=== PATIENT | female | born 1950 | race Caucasian/White ===

== ENCOUNTER 2020-08-11 16:57 | Observation (INO) | payer MEDICARE, MEDICAID ==
--- NOTE | 2020-08-11 17:34 | EDM.PDOCBH ---
ED HPI GENERAL MEDICAL PROBLEM - General Chief Complaint: Behavioral/Psych Stated Complaint: hallucination Time Seen by Provider: 08/11/20 17:22 Source of Information: Reports: Patient, Other (Mango watermelon inspector boyfriend. ) History Limitations: Reports: No Limitations - History of Present Illness INITIAL COMMENTS - FREE TEXT/NARRATIVE: This patient is a 69 year old female that presents to the ER. Patient reports that her family wanted her to be seen because they think she has a UTI. The patient reports that she campos also been seeing 5 guys around her house that [place], but now are her neighbors. She reports that she s scared of them. She denies suicidal or homicidal ideations. Mango who is her watermelon inspector boyfriend reports the patient for several weeks has been seeing people that do not exist outside the house. He also reports that she said there was a truck that pulled up in their yard that did not exist. The patient does report that these things do exist. Patient reports that has no complaints herself. She reports she was told to come to the ER to be checked out by her family and that her boyfriend drove her here. Patient reports having children, but no in contact. She reports her person to talk to is her boyfriend. The patient denies campos, dizziness, n, v, d, f, chest pain, shortness of breath, congestion, drainage, cough, rash, abd pain, urinary/bowel changes. The patient is fully alert and oriented. Onset: Other ("weeks") Duration: Week(s): ("weeks") Severity: Mild Improves with: Reports: None Worsens with: Reports: None Associated Symptoms: Denies: Confusion, Chest Pain, Cough, cough w sputum, Diaphoresis, Fever/Chills, Headaches, Loss of Appetite, Malaise, Nausea/Vomiting, Rash, Seizure, Shortness of Breath, Syncope, Weakness - Related Data Allergies Allergy/AdvReac Type Severity Reaction Status Date / Time No Known Allergies Allergy Verified 12/07/13 13:25 Home Meds: Home Meds DULoxetine [Cymbalta] 60 mg PO DAILY 12/07/13 [History] Dextroamphetamine/Amphetamine [Amphetamine Salts] 30 mg PO 0800,1500 12/07/13 [History] Ibuprofen 800 mg PO BID PRN 12/07/13 [History] Levothyroxine [Synthroid] 75 mcg PO DAILY 12/07/13 [History] Lisinopril [Zestril] 20 mg PO 0800,1500 12/07/13 [History] Multivitamin [Multi-Vitamin Daily] 1 each PO DAILY 12/07/13 [History] Oxybutynin 10 mg PO 0800,1500 12/07/13 [History] amLODIPine [Norvasc] 10 mg PO DAILY #30 tablet 12/10/13 [Rx] Fesoterodine Fumarate [Toviaz] 4 mg PO ASDIRECTED 08/11/20 [History] Metoprolol Tartrate [Lopressor] 25 mg PO 0800,1500 08/11/20 [History] Past Medical History Cardiovascular History: Reports: Hypertension Psychiatric History: Reports: ADHD, Depression, Hallucinations Endocrine/Metabolic History: Reports: Hypothyroidism - Past Surgical History GI Surgical History: Reports: Cholecystectomy Social & Family History - Tobacco Use Tobacco Use Status *Q: Former Tobacco User Used Tobacco, but Quit: Yes Month/Year Tobacco Last Used: 9 mos - Caffeine Use Caffeine Use: Reports: None - Recreational Drug Use Recreational Drug Use: No ED ROS GENERAL - Review of Systems Review Of Systems: See Below Constitutional: Reports: No Symptoms HEENT: Reports: No Symptoms. Denies: Dental Pain, Ear Discharge, Ear Pain, Eye Discharge, Eye Pain, Nosebleed, Rhinitis, Sinus Problem, Throat Pain, Throat Swelling, Vertigo, Vision Change Respiratory: Reports: No Symptoms. Denies: Shortness of Breath, Wheezing, Pleuritic Chest Pain, Cough, Sputum, Hemoptysis Cardiovascular: Reports: No Symptoms. Denies: Chest Pain, Dyspnea on Exertion, Edema, Lightheadedness, Palpitations, Syncope Endocrine: Reports: No Symptoms GI/Abdominal: Reports: No Symptoms. Denies: Abdominal Pain, Diarrhea, Decreased Appetite, Nausea, Vomiting : Reports: No Symptoms. Denies: Discharge, Dysuria, Flank Pain, Frequency, Hematuria, Incontinence, Pain, Urgency, Urinary Retention Musculoskeletal: Reports: No Symptoms Skin: Reports: No Symptoms Neurological: Reports: No Symptoms. Denies: Confusion, Dizziness, Headache, Numbness, Paresthesia, Pre-Existing Deficit, Seizure, Syncope, Tingling, Tremors, Trouble Speaking, Difficulty Walking, Weakness, Change in Speech, Gait Disturbance Psychiatric: Reports: Anxiety, Hallucinations. Denies: Agitation, Confusion, Homicidal Ideation, Suicidal Ideation Hematologic/Lymphatic: Reports: No Symptoms Immunologic: Reports: No Symptoms ED EXAM, BEHAVIORAL HEALTH - Physical Exam Exam: See Below Exam Limited By: No Limitations General Appearance: Alert, WD/WN, No Apparent Distress Eye Exam: Bilateral Eye: EOMI, Normal Inspection, PERRL Ears: Normal External Exam, Normal Canal, Hearing Grossly Normal, Normal TMs Nose: Normal Inspection, Normal Mucosa, No Blood Throat/Mouth: Normal Inspection, Normal Lips, Normal Teeth, Normal Gums, Normal Oropharynx, Normal Voice, No Airway Compromise Head: Atraumatic, Normocephalic Neck: Normal Inspection, Supple, Non-Tender, Full Range of Motion Respiratory/Chest: No Respiratory Distress, Lungs Clear, Normal Breath Sounds, No Accessory Muscle Use, Chest Non-Tender Cardiovascular: Normal Peripheral Pulses, Regular Rate, Rhythm, No Edema, No Gallop, No JVD, No Murmur, No Rub GI/Abdominal: Normal Bowel Sounds, Soft, Non-Tender, No Organomegaly, No Distention, No Abnormal Bruit, No Mass, Pelvis Stable (Female) Exam: Deferred Rectal (Female) Exam: Deferred Back Exam: Normal Inspection, Full Range of Motion. No: CVA Tenderness (L), CVA Tenderness (R), Paraspinal Tenderness, Vertebral Tenderness Extremities: Normal Inspection, Normal Range of Motion, Non-Tender, No Pedal Edema, Normal Capillary Refill Neurological: Alert, Normal Mood/Affect, CN II-XII Intact, Normal Cognition, Normal Gait, No Motor/Sensory Deficits, Oriented x 3, Other (GCS 15, Stroke Score 0. I do not witness patient having any hallucinations in the ER. ) Psychiatric: Alert, Normal Affect, Normal Cognition, Normal Mood, Oriented. No: Incoherent, Restless, Tearful, Agitated, Disoriented, Inattentive, Non- Communicative, Poor Eye Contact, Uncooperative, Withdrawn, Flight of Ideas, Homicidal Thoughts, Phobic, Hoahaoism Delusions, Suicidal Plan, Suicidal Thoughts, Auditory Hallucinations, Visual Hallucinations (Not seen by me in the ER), Pressured Speech, Threatening Behavior Skin Exam: Warm, Dry, Intact, Normal color, No rash COURSE, BEHAVIORAL HEALTH COMP - Course Vital Signs: Last Vital Signs Temp 97.2 F 08/11/20 19:38 Pulse 64 08/11/20 20:00 Resp 18 08/11/20 19:38 BP 134/68 08/11/20 19:38 Pulse Ox 94 L 08/11/20 20:00 Orders, Labs, Meds: Active Orders 24 hr Category Date Time Status Patient Status [ADT] Routine ADT 08/11/20 19:38 Active Ambulate [RC] .PRN Care 08/11/20 19:38 Active Antiembolic Devices [RC] 1000,2200 Care 08/11/20 19:38 Active Notify Provider Vital Signs [RC] .PRN Care 08/11/20 19:38 Active Oxygen Therapy [RC] .PRN Care 08/11/20 19:38 Active Vital Signs [RC] 0000,0400,0800,1200,1600,2000 Care 08/11/20 19:38 Active Regular Diet [DIET] Diet 08/11/20 Breakfast Active Head wo Cont [CT] Stat Exams 08/11/20 18:01 Taken BASIC METABOLIC PANEL,BMP [CHEM] DAILY Lab 08/12/20 05:00 Ordered BASIC METABOLIC PANEL,BMP [CHEM] DAILY Lab 08/13/20 05:00 Ordered CBC WITH AUTO DIFF [HEME] DAILY Lab 08/12/20 05:00 Ordered CBC WITH AUTO DIFF [HEME] DAILY Lab 08/13/20 05:00 Ordered CULTURE URINE [RM] Stat Lab 08/11/20 19:12 Received Acetaminophen [TylenoL] Med 08/11/20 19:38 Active 650 mg PO Q4H PRN Acetaminophen/HYDROcodone [[place] 325-5 MG] Med 08/11/20 19:38 Active 1 tab PO Q4H PRN Enoxaparin [Lovenox] Med 08/11/20 19:38 Ordered 30 mg SUBCUT Q24H Morphine Med 08/11/20 19:38 Active 2 mg IVPUSH Q2H PRN Ondansetron [Zofran] Med 08/11/20 19:38 Active 4 mg IV Q6H PRN Sodium Chloride 0.9% [Normal Saline] 1,000 ml Med 08/11/20 19:38 Active IV ASDIRECTED Antiembolic Hose [OM.PC] Per Unit Routine Oth 08/11/20 19:38 Ordered Resuscitation Status Routine Resus Stat 08/11/20 19:22 Ordered Medication Orders Acetaminophen (Acetaminophen 325 Mg Tab) 650 mg PO Q4H PRN PRN Reason: Pain (Mild 1-3)/fever Hydrocodone Bitart/Acetaminophen (Acetaminophen/Hydrocodone 325-5 Mg Tab) 1 tab PO Q4H PRN PRN Reason: Pain (moderate 4-6) Enoxaparin Sodium (Enoxaparin 30 Mg/0.3 Ml Syringe) 30 mg SUBCUT Q24H [facility] Sodium Chloride (Normal Saline) 1,000 mls @ 100 mls/hr IV ASDIRECTED RETA Stop: 08/12/20 05:37 Levofloxacin/Dextrose 500 mg/ (Premix) 100 mls @ 100 mls/hr IV ONETIME ONE Stop: 08/11/20 20:37 Levofloxacin/Dextrose 250 mg/ (Premix) 50 mls @ 50 mls/hr IV Q24H RETA Morphine Sulfate (Morphine 2 Mg/Ml Syringe) 2 mg IVPUSH Q2H PRN PRN Reason: Pain (severe 7-10) Non-Formulary Medication (Amlodipine [Norvasc]) 10 mg PO DAILY [facility] Non-Formulary Medication (Dextroamphetamine/Amphetamine [Amphetamine Salts]) 30 mg PO 0800,1500 [facility] Non-Formulary Medication (Duloxetine [Cymbalta]) 60 mg PO DAILY [facility] Non-Formulary Medication (Fesoterodine Fumarate [Toviaz]) 4 mg PO ASDIRECTED [facility] Non-Formulary Medication (Levothyroxine [Synthroid]) 75 mcg PO DAILY [facility] Non-Formulary Medication (Lisinopril [Zestril]) 20 mg PO 0800,1500 [facility] Non-Formulary Medication (Metoprolol Tartrate [Lopressor]) 25 mg PO 0800,1500 [facility] Non-Formulary Medication (Multivitamin [Multi-Vitamin Daily]) 1 each PO DAILY [facility] Non-Formulary Medication (Oxybutynin [Oxybutynin]) 10 mg PO 0800,1500 [facility] Ondansetron HCl (Ondansetron 4 Mg/2 Ml Sdv) 4 mg IV Q6H PRN PRN Reason: Nausea/Vomiting Laboratory Tests 08/11/20 08/11/20 08/11/20 Range/Units 17:27 17:27 17:51 WBC 7.7 (5.0-10.0) 10^3/uL RBC 4.91 (4.00-5.50) 10^6/uL Hgb 13.4 (12.0-16.0) g/dL Hct 42.4 (37.0-47.0) % MCV 86.4 (82.0-94.0) fL MCH 27.3 (27.0-32.0) pg MCHC 31.6 L (33.0-38.0) g/dL RDW Coeff of Marck 15.0 (11.0-15.0) % Plt Count 261 (150-400) 10^3/uL Neut % (Auto) 66.0 (35-85) % Lymph % (Auto) 23.6 (10-55) % Cedar % (Auto) 7.8 (0-16) % Eos % (Auto) 2.2 (0-5) % Baso % (Auto) 0.4 (0-3) % Neut # (Auto) 5.07 (1.80-7.00) 10^3/uL Lymph # (Auto) 1.81 (1.00-4.80) 10^3/uL Cedar # (Auto) 0.60 (0.00-0.80) 10^3/uL Eos # (Auto) 0.17 (0.00-0.45) 10^3/uL Baso # (Auto) 0.03 10^3/uL Sodium (136-145) mEq/L Potassium (3.5-5.0) mEq/L Chloride (98-106) mEq/L Carbon Dioxide (21-32) mmol/L BUN (7-18) mg/dL Creatinine (0.6-1.0) mg/dL Est Cr Clr Drug Dosing mL/min Estimated GFR (MDRD) (>=60) mL/min Glucose (75-99) mg/dL Calcium (8.4-10.1) mg/dL Total Bilirubin (0.0-1.0) mg/dL AST (15-37) U/L ALT (12-78) U/L Alkaline Phosphatase (46-116) U/L Total Protein (6.4-8.2) g/dL Albumin (3.4-5.0) g/dL Urine Color Dark yellow (YELLOW) Urine Appearance Turbid (CLEAR) Urine pH 5.5 (4.5-8.0) Ur Specific [place] >= 1.030 H (1.003-1.020) Urine Protein 30 H (NEGATIVE) mg/dL Urine Glucose (UA) Negative (NEGATIVE) mg/dL Urine Ketones Negative (NEGATIVE) mg/dL Urine Occult Blood Negative (NEGATIVE) Urine Nitrite Positive H (NEGATIVE) Urine Bilirubin Negative (NEGATIVE) Urine Urobilinogen 0.2 (0.2-1.0) EU/dL Ur Leukocyte Esterase Negative (NEGATIVE) Urine RBC 0-5 (0-5) /HPF Urine WBC 5-10 H (0-5) /HPF Ur Squamous Epith Cells Few H (NOT SEEN) /HPF Urine Bacteria Many H (NOT SEEN) /HPF Urinalysis Comment Urine Opiates Screen Negative (NEGATIVE) Ur Oxycodone Screen Negative (NEGATIVE) Urine Methadone Screen Negative (NEGATIVE) Ur Barbiturates Screen Negative (NEGATIVE) U Tricyclic Antidepress Negative (NEGATIVE) Ur Phencyclidine Scrn Negative (NEGATIVE) Ur Amphetamine Screen Positive H (NEGATIVE) U Methamphetamines Scrn Negative (NEGATIVE) Urine MDMA Screen Negative (NEGATIVE) U Benzodiazepines Scrn Negative (NEGATIVE) Urine Cocaine Screen Negative (NEGATIVE) U Marijuana (THC) Screen Negative (NEGATIVE) Ethyl Alcohol (0-3) mg/dL 08/11/20 Range/Units 17:51 WBC (5.0-10.0) 10^3/uL RBC (4.00-5.50) 10^6/uL Hgb (12.0-16.0) g/dL Hct (37.0-47.0) % MCV (82.0-94.0) fL MCH (27.0-32.0) pg MCHC (33.0-38.0) g/dL RDW Coeff of Marck (11.0-15.0) % Plt Count (150-400) 10^3/uL Neut % (Auto) (35-85) % Lymph % (Auto) (10-55) % Cedar % (Auto) (0-16) % Eos % (Auto) (0-5) % Baso % (Auto) (0-3) % Neut # (Auto) (1.80-7.00) 10^3/uL Lymph # (Auto) (1.00-4.80) 10^3/uL Cedar # (Auto) (0.00-0.80) 10^3/uL Eos # (Auto) (0.00-0.45) 10^3/uL Baso # (Auto) 10^3/uL Sodium 144 (136-145) mEq/L Potassium 4.1 D (3.5-5.0) mEq/L Chloride 103 (98-106) mEq/L Carbon Dioxide 30 (21-32) mmol/L BUN 17 (7-18) mg/dL Creatinine 1.7 H (0.6-1.0) mg/dL Est Cr Clr Drug Dosing 28.90 mL/min Estimated GFR (MDRD) 30 L (>=60) mL/min Glucose 131 H (75-99) mg/dL Calcium 9.3 (8.4-10.1) mg/dL Total Bilirubin 0.3 (0.0-1.0) mg/dL AST 28 (15-37) U/L ALT 29 (12-78) U/L Alkaline Phosphatase 168 H (46-116) U/L Total Protein 8.3 H (6.4-8.2) g/dL Albumin 3.6 (3.4-5.0) g/dL Urine Color (YELLOW) Urine Appearance (CLEAR) Urine pH (4.5-8.0) Ur Specific [place] (1.003-1.020) Urine Protein (NEGATIVE) mg/dL Urine Glucose (UA) (NEGATIVE) mg/dL Urine Ketones (NEGATIVE) mg/dL Urine Occult Blood (NEGATIVE) Urine Nitrite (NEGATIVE) Urine Bilirubin (NEGATIVE) Urine Urobilinogen (0.2-1.0) EU/dL Ur Leukocyte Esterase (NEGATIVE) Urine RBC (0-5) /HPF Urine WBC (0-5) /HPF Ur Squamous Epith Cells (NOT SEEN) /HPF Urine Bacteria (NOT SEEN) /HPF Urinalysis Comment Urine Opiates Screen (NEGATIVE) Ur Oxycodone Screen (NEGATIVE) Urine Methadone Screen (NEGATIVE) Ur Barbiturates Screen (NEGATIVE) U Tricyclic Antidepress (NEGATIVE) Ur Phencyclidine Scrn (NEGATIVE) Ur Amphetamine Screen (NEGATIVE) U Methamphetamines Scrn (NEGATIVE) Urine MDMA Screen (NEGATIVE) U Benzodiazepines Scrn (NEGATIVE) Urine Cocaine Screen (NEGATIVE) U Marijuana (THC) Screen (NEGATIVE) Ethyl Alcohol < 3 (0-3) mg/dL Medications Generic Name Dose Route Start Last Admin Trade Name Freq PRN Reason Stop Dose Admin Acetaminophen 650 mg 08/11/20 19:38 Acetaminophen 325 Mg Tab PO Q4H PRN Pain (Mild 1-3)/fever Hydrocodone Bitart/Acetaminophen 1 tab 08/11/20 19:38 Acetaminophen/Hydrocodone 325-5 Mg Tab PO Q4H PRN Pain (moderate 4-6) Enoxaparin Sodium 30 mg 08/11/20 20:00 Enoxaparin 30 Mg/0.3 Ml Syringe SUBCUT Q24H [facility] Sodium Chloride 1,000 mls @ 100 mls/hr 08/11/20 19:38 Normal Saline IV 08/12/20 05:37 ASDIRECTED RETA Levofloxacin/Dextrose 500 mg/ 100 mls @ 100 mls/hr 08/11/20 19:38 Premix IV 08/11/20 20:37 ONETIME ONE Levofloxacin/Dextrose 250 mg/ 50 mls @ 50 mls/hr 08/12/20 20:00 Premix IV Q24H RETA Morphine Sulfate 2 mg 08/11/20 19:38 Morphine 2 Mg/Ml Syringe IVPUSH Q2H PRN Pain (severe 7-10) Non-Formulary Medication 10 mg 08/12/20 08:00 Amlodipine [Norvasc] PO DAILY [facility] Non-Formulary Medication 30 mg 08/12/20 08:00 Dextroamphetamine/Amphetamine [Amphetamine Salts] PO 0800,1500 [facility] Non-Formulary Medication 60 mg 08/12/20 08:00 Duloxetine [Cymbalta] PO DAILY [facility] Non-Formulary Medication 4 mg 08/11/20 19:38 Fesoterodine Fumarate [Toviaz] PO ASDIRECTED [facility] Non-Formulary Medication 75 mcg 08/12/20 08:00 Levothyroxine [Synthroid] PO DAILY [facility] Non-Formulary Medication 20 mg 08/12/20 08:00 Lisinopril [Zestril] PO 0800,1500 [facility] Non-Formulary Medication 25 mg 08/12/20 08:00 Metoprolol Tartrate [Lopressor] PO 0800,1500 [facility] Non-Formulary Medication 1 each 08/12/20 08:00 Multivitamin [Multi-Vitamin Daily] PO DAILY [facility] Non-Formulary Medication 10 mg 08/12/20 08:00 Oxybutynin [Oxybutynin] PO 0800,1500 [facility] Ondansetron HCl 4 mg 08/11/20 19:38 Ondansetron 4 Mg/2 Ml Sdv IV Q6H PRN Nausea/Vomiting Discontinued Medications Generic Name Dose Route Start Last Admin Trade Name Freq PRN Reason Stop Dose Admin Sodium Chloride 1,000 mls @ 1,000 mls/hr 08/11/20 18:39 Normal Saline IV 08/11/20 19:38 .BOLUS ONE Re-Assessment/Re-Exam: 08/11/[address]: No acute findings 08/11/20 1900 Patient CR is elevated at 1.7. Patient had urinary retention in the ER, had to cath for UA. UTI with Nitrate positive urine. Will culture. Will admit for renal insufficiency and UTI. Initially, her oxygen in the ER was 94%, does fluctuate between 90-94% on RA. Once patient arrived to the floor during admission her oxygen is 88%. I ordered a CXR and D-Dimer. She denies shortness of breath, cough, chest pain. She reports that when she had her back surgery in [place] in November that they had problems keeping her oxygen up while she was there for several days per patient. She reports everything was normal and they just put her on oxygen. Departure - Departure Time of Disposition: 18:52 Disposition: Refer to Observation Condition: Fair Clinical Impression: Renal insufficiency UTI (urinary tract infection) Qualifiers: Urinary tract infection type: acute cystitis Hematuria presence: without hematuria Qualified Code(s): N30.00 - Acute cystitis without hematuria - Discharge Information *PRESCRIPTION DRUG MONITORING PROGRAM REVIEWED*: Not Applicable *COPY OF PRESCRIPTION DRUG MONITORING REPORT IN PATIENT LACI: Not Applicable Sepsis Event Note (ED) - Evaluation Sepsis Screening Result: No Definite Risk - Focused Exam Vital Signs: Vital Signs Temp Pulse Resp BP Pulse Ox 08/11/20 17:00 97.7 F 80 18 120/65 94 L - My Orders Last 24 Hours: My Active Orders 08/11/20 Breakfast Regular Diet [DIET] 08/11/20 18:01 Head wo Cont [CT] Stat 08/11/20 19:12 CULTURE URINE [RM] Stat 08/11/20 19:22 Resuscitation Status Routine 08/11/20 19:38 Acetaminophen [TylenoL] 650 mg PO Q4H PRN Acetaminophen/HYDROcodone [[place] 325-5 MG] 1 tab PO Q4H PRN Enoxaparin [Lovenox] 30 mg SUBCUT Q24H Morphine 2 mg IVPUSH Q2H PRN Ondansetron [Zofran] 4 mg IV Q6H PRN Sodium Chloride 0.9% [Normal Saline] 1,000 ml IV ASDIRECTED 08/11/20 19:38 Patient Status [ADT] Routine Ambulate [RC] .PRN Antiembolic Devices [RC] 1000,2200 Notify Provider Vital Signs [RC] .PRN Oxygen Therapy [RC] .PRN Vital Signs [RC] 0000,0400,0800,1200,1600,2000 Antiembolic Hose [OM.PC] Per Unit Routine 08/12/20 05:00 BASIC METABOLIC PANEL,BMP [CHEM] DAILY CBC WITH AUTO DIFF [HEME] DAILY 08/13/20 05:00 BASIC METABOLIC PANEL,BMP [CHEM] DAILY CBC WITH AUTO DIFF [HEME] DAILY - Assessment/Plan Last 24 Hours: My Active Orders 08/11/20 Breakfast Regular Diet [DIET] 08/11/20 18:01 Head wo Cont [CT] Stat 08/11/20 19:12 CULTURE URINE [RM] Stat 08/11/20 19:22 Resuscitation Status Routine 08/11/20 19:38 Acetaminophen [TylenoL] 650 mg PO Q4H PRN Acetaminophen/HYDROcodone [[place] 325-5 MG] 1 tab PO Q4H PRN Enoxaparin [Lovenox] 30 mg SUBCUT Q24H Morphine 2 mg IVPUSH Q2H PRN Ondansetron [Zofran] 4 mg IV Q6H PRN Sodium Chloride 0.9% [Normal Saline] 1,000 ml IV ASDIRECTED 08/11/20 19:38 Patient Status [ADT] Routine Ambulate [RC] .PRN Antiembolic Devices [RC] 1000,2200 Notify Provider Vital Signs [RC] .PRN Oxygen Therapy [RC] .PRN Vital Signs [RC] 0000,0400,0800,1200,1600,2000 Antiembolic Hose [OM.PC] Per Unit Routine 08/12/20 05:00 BASIC METABOLIC PANEL,BMP [CHEM] DAILY CBC WITH AUTO DIFF [HEME] DAILY 08/13/20 05:00 BASIC METABOLIC PANEL,BMP [CHEM] DAILY CBC WITH AUTO DIFF [HEME] DAILY Plan: PLEASE SEE RN NOTE FOR PFSH PLEASE USE ER H&P ADMIT H&P.
[2020-08-11 18:06] LABS: CHLORIDE,CL 103 mEq/L (98-106); SODIUM,NA 144 mEq/L (136-145)
[2020-08-11] MEDS ORDERED: Sodium Chloride 0.9% 1,000 ML IV ONE (18:39)
[2020-08-11] MEDS ORDERED: Sodium Chloride 0.9% 1,000 ML IV SCH (19:38)
[2020-08-11] MEDS ORDERED: Acetaminophen 325 MG Tab PO PRN (19:38)
[2020-08-11] MEDS ORDERED: Acetaminophen/HYDROcodone 325-5 MG Tab PO PRN (19:38)
[2020-08-11] MEDS ORDERED: Ondansetron 4 MG/2 ML SDV IV PRN (19:38)
[2020-08-11] MEDS ORDERED: Morphine 2 MG/ML SYRINGE IVPUSH PRN (19:38)
[2020-08-11] MEDS ORDERED: Levofloxacin/Dextrose 5%-Water 500 MG in Premix Bag 1 BAG IV ONE (19:38)
[2020-08-11] MEDS: Enoxaparin 30 MG/0.3 ML Syringe SUBCUT SCH (20:29)
[2020-08-11] MEDS: Temazepam 15 MG Cap PO PRN (22:04)
[2020-08-12] MEDS ORDERED: Levothyroxine 50 MCG Tab PO SCH (07:00)
[2020-08-12] MEDS: Multivitamin Tab PO SCH (07:51)
[2020-08-12] MEDS ORDERED: OXYBUTYNIN 5 MG PO SCH (08:00)
[2020-08-12] MEDS: AMLODIPINE 10 MG PO SCH (08:25)
[2020-08-12] MEDS: AMPHETAMINE PO SCH ×2 (08:25→15:46)
[2020-08-12] MEDS: DEXTROAMPHETAMINE PO SCH ×2 (08:25→15:46)
[2020-08-12] MEDS ORDERED: Iopamidol 755 Mg/ML 100 ML Bottle IVPUSH ONE (11:29)
--- NOTE | 2020-08-12 13:59 | PCM.CONSBH ---
Hx. Present Illness - - General Date of Service: 08/12/20 Admit Problem/Dx: Admission Diagnosis/Problem Admission Diagnosis/Problem UTI, Urinary tract infectious disease Source of Information: Reports: Patient, RN, RN Notes Reviewed History Limitations: Reports: No Limitations - Related Data Allergies/Adverse Reactions: Allergies Allergy/AdvReac Type Severity Reaction Status Date / Time No Known Allergies Allergy Verified 12/07/13 13:25 Home Medications: Home Meds DULoxetine [Cymbalta] 60 mg PO DAILY 12/07/13 [History] Dextroamphetamine/Amphetamine [Amphetamine Salts] 30 mg PO 0800,1500 12/07/13 [History] Ibuprofen 800 mg PO BID PRN 12/07/13 [History] Levothyroxine [Synthroid] 75 mcg PO DAILY 12/07/13 [History] Lisinopril [Zestril] 20 mg PO 0800,1500 12/07/13 [History] Multivitamin [Multi-Vitamin Daily] 1 each PO DAILY 12/07/13 [History] amLODIPine [Norvasc] 10 mg PO DAILY #30 tablet 12/10/13 [Rx] Fesoterodine Fumarate [Toviaz] 4 mg PO ASDIRECTED 08/11/20 [History] Metoprolol Tartrate [Lopressor] 25 mg PO 0800,1500 08/11/20 [History] Past Medical Hx - Cardiovascular Hx: Reports: Hypertension Gastrointestinal Hx: Reports: Cholelithiasis Genitourinary Hx: Reports: Urinary Incontinence PEDIATRIC RADIOLOGIST Hx: Reports: Other (See Below) Psychiatric Hx: Reports: ADD, Depression Endocrine/Metabolic Hx: Reports: Thyroid Disease GI Surgical Hx: Reports: Cholecystectomy (Female) Surgical Hx: Reports: None Social & Family History - - Tobacco Use Used Tobacco, but Quit: Yes - Alcohol Use Alcohol Use History: No Review of Systems - - Review of Systems: Review Of Systems: Comprehensive ROS is negative, except as noted in HPI. Psychiatric: Reports: Depression, Anxiety, Hallucinations (Visual) Exam - - Exam Exam: See Below - Vital Signs Vital Signs: Last Vital Signs Temp 36.4 C 08/12/20 12:00 Pulse 74 08/12/20 12:00 Resp 18 08/12/20 12:00 BP 126/79 08/12/20 12:00 Pulse Ox 91 L 08/12/20 12:00 - Exam General: Alert, Oriented Neuro Exam - Mental Status: Alert, Oriented x3, Normal Mood/Affect Psychiatric: Alert, Normal Affect, Normal Mood - [place] I, II, III (1) Hallucinations, visual SNOMED Code(s): 24153830 ICD Code: R44.1 - VISUAL HALLUCINATIONS Status: Acute Current Visit: Yes - Plan FREE TEXT/NARRATIVE: General Appearance: elderly woman, wearing hospital gown, laying in hospital bed, wearing glasses, has oxygen on per nasal cannula Mood: euthymic Affect: congruent with mood Suicidal/Homicidal Ideations: denies SI or HI Behavior: cooperative, pleasant. psychomotor activity normal, eye contact well established Speech: clear, coherent, spontaneous Thought Process: goal directed, linear, logical Thought Content: denies hallucinations or delusions in hospital. talks about visual hallucinations that occurred at home Abnormal motor movements: normal Orientation: person, place, time Attention Span and Concentration: intact Judgment/Insight: appears developmentally appropriate Undersign asked to consult on patient regarding hallucinations. Patient into ER with significant other yesterday because she was reporting visual hallucinations. She was admitted to [facility] floor for UTI and has received one round of IV antibiotics. Patient states over the last month she has been seeing 3-5 guys who are in a band move onto her land. She states these men planted bushes with electrons and the electrons shoot out and killed over 50 cats. Patient also talks about seeing a toy bear on roller skates that could talk in her yard and one of the 3-5 men riding a horse around the yard. She reports being scared to be home alone because of these people in her yard. Patient states she is the only one who sees these men and that her significant other Mango does not see them. States "no one believes me." Patient denies seeing these men in the hospital. She denies auditory hallucinations, SI, or HI. Patient reports a history of depression, anxiety and ADHD. She currently takes duloxetine and adderall. Patient states her depression and anxiety have become worse over the last month due to the visual hallucinations and no one believing her. Patient states she and her significant other Mango have been together for 11 years. She reports having five children. No medication changes at this time as patient has only received one dose of antibiotics. Hallucinations should improve with treatment of UTI. If hallucinations do not resolve can reach out to undersign. - Orders Orders Last 24hrs: Active Orders 24 hr Category Date Time Status Patient Status [ADT] Routine ADT 08/11/20 19:38 Active Ambulate [RC] .PRN Care 08/11/20 19:38 Active Antiembolic Devices [RC] 1000,2200 Care 08/11/20 19:38 Active Notify Provider Vital Signs [RC] .PRN Care 08/11/20 19:38 Active Oxygen Therapy [RC] 2355 Care 08/11/20 19:38 Active Urinary Catheter Insertion [Insert Urinary Catheter] [ Care 08/11/20 19:49 Ordered OM.PC] Stat Vital Signs [RC] 0000,0400,0800,1200,1600,2000 Care 08/11/20 19:38 Active Consult to Psychiatric Intake Coord [Behavioral Health Cons 08/12/20 09:43 Active Evaluation] [CONS] Routine CTA Chest W WO Contrast [Ang Chest] [CT] Routine Exams 08/12/20 09:43 Taken CXR [Chest 2V] [CR] Stat Exams 08/12/20 06:00 Taken Head wo Cont [CT] Stat Exams 08/11/20 18:01 Taken BASIC METABOLIC PANEL,BMP [CHEM] DAILY Lab 08/13/20 05:00 Ordered CBC WITH AUTO DIFF [HEME] DAILY Lab 08/13/20 05:00 Ordered CULTURE URINE [RM] Stat Lab 08/11/20 19:12 Results Acetaminophen [TylenoL] Med 08/11/20 19:38 Active 650 mg PO Q4H PRN Acetaminophen/HYDROcodone [[place] 325-5 MG] Med 08/11/20 19:38 Active 1 tab PO Q4H PRN DULoxetine [Cymbalta] Med 08/12/20 08:00 Active 60 mg PO DAILY Dextroamphetamine/Amphetamine [Amphetamine Salts] Med 08/12/20 08:00 Active 30 mg PO 0800,1500 Enoxaparin [Lovenox] Med 08/11/20 20:00 Active 30 mg SUBCUT Q24H Fesoterodine Fumarate [Toviaz] Med 08/11/20 19:38 Active 4 mg PO ASDIRECTED Levofloxacin/Dextrose 5%-Water [Levaquin in D5W 250 MG/ Med 08/12/20 20:00 Active 50 ML] 250 mg Premix Bag 1 bag IV Q24H Levothyroxine [Synthroid] Med 08/12/20 07:00 Active 75 mcg PO ACBREAKFAST Lisinopril [Zestril] Med 08/12/20 08:00 Active 20 mg PO 0800,1500 Metoprolol Tartrate [Lopressor] Med 08/12/20 08:00 Active 25 mg PO 0800,1500 Morphine Med 08/11/20 19:38 Active 2 mg IVPUSH Q2H PRN Multivitamins [Tab-A-Leonila] Med 08/12/20 08:00 Active 1 tab PO DAILY Ondansetron [Zofran] Med 08/11/20 19:38 Active 4 mg IV Q6H PRN Temazepam [Restoril] Med 08/11/20 21:16 Active 15 mg PO BEDTIME PRN amLODIPine [Norvasc] Med 08/12/20 08:00 Active 10 mg PO DAILY Antiembolic Hose [OM.PC] Per Unit Routine Oth 08/11/20 19:38 Ordered Resuscitation Status Routine Resus Stat 08/11/20 19:22 Ordered Medication Orders Acetaminophen (Acetaminophen 325 Mg Tab) 650 mg PO Q4H PRN PRN Reason: Pain (Mild 1-3)/fever Hydrocodone Bitart/Acetaminophen (Acetaminophen/Hydrocodone 325-5 Mg Tab) 1 tab PO Q4H PRN PRN Reason: Pain (moderate 4-6) Enoxaparin Sodium (Enoxaparin 30 Mg/0.3 Ml Syringe) 30 mg SUBCUT Q24H [facility] Last Admin: 08/11/20 20:29 Dose: 30 mg Documented by: CR Levofloxacin/Dextrose 250 mg/ (Premix) 50 mls @ 50 mls/hr IV Q24H [facility] Levothyroxine Sodium (Levothyroxine 50 Mcg Tab) 75 mcg PO ACBREAKFAST [facility] Last Admin: 08/12/20 07:47 Dose: 75 mcg Documented by: AYO Morphine Sulfate (Morphine 2 Mg/Ml Syringe) 2 mg IVPUSH Q2H PRN PRN Reason: Pain (severe 7-10) Multivitamins/Minerals/Vitamin C (Multivitamin Tab) 1 tab PO DAILY [facility] Last Admin: 08/12/20 07:51 Dose: 1 tab Documented by: AYO (Amlodipine [Norvasc ] 10 Mg Tablet) Own Med 10 mg PO DAILY [facility] Last Admin: 08/12/20 08:25 Dose: 10 mg Documented by: JAMAL (Dextroamphetamine/Amphetamine [ Amphetamine Salts] 30 Mg Own Med 30 mg PO 0800,1500 [facility] Last Admin: 08/12/20 08:25 Dose: 30 mg Documented by: JAMAL (Duloxetine [ Cymbalta] 60 Mg Cap) Own Med 60 mg PO DAILY [facility] Last Admin: 08/12/20 08:25 Dose: 60 mg Documented by: JAMAL [Toviaz] 8 Mg Tab.Er (.24h) Own Med) 4 mg PO ASDIRECTED [facility] (Lisinopril [Zestril ] 20 Mg Tablet) Own Med 20 mg PO 0800,1500 [facility] Last Admin: 08/12/20 08:25 Dose: 20 mg Documented by: JAMAL (Metoprolol Tartrate [Lopressor] 25 Mg Tablet)Own Med 25 mg PO 0800,1500 [facility] Last Admin: 08/12/20 08:25 Dose: 25 mg Documented by: JAMAL Ondansetron HCl (Ondansetron 4 Mg/2 Ml Sdv) 4 mg IV Q6H PRN PRN Reason: Nausea/Vomiting Temazepam (Temazepam 15 Mg Cap) 15 mg PO BEDTIME PRN PRN Reason: Insomnia Last Admin: 08/11/20 22:04 Dose: 15 mg Documented by: JOHNATHON TeleHealth - TeleHealth Patient Service Facility: [facility]: [facility] Informed Consent: Telemedicine Audio/Visual Informed Consent: The risks, benefits, and alternatives to the telehealth visit were explained to the patient and the patient consented to this modality of care. The telehealth visit was carried out via a secure, web-based conferencing system. This telemedicine service was a real-time, two-way interactive video and communication between the patient and the provider. All the parties involved were identified and approved by the patient prior to the visit. Any physical exam was assisted by the patient. Un less noted otherwise, the provider was located at their usual clinic location, and the patient was at their place of residence. Patient identity was confirmed by having the patient state their name and date of . All communications with the patient (verbal, audiovisual, and written) were documented in the patients medical record per documentation standards.
[2020-08-12] MEDS: Levofloxacin/Dextrose 5%-Water 250 MG in Premix Bag 1 BAG IV SCH (19:53)
[2020-08-12] MEDS: Enoxaparin 30 MG/0.3 ML Syringe SUBCUT SCH (19:53)
--- NOTE | 2020-08-12 23:25 | PCM.PN ---
- General Info Date of Service: 08/12/20 Admission Dx/Problem (Free Text): Admission Diagnosis/Problem Admission Diagnosis/Problem UTI, Urinary tract infectious disease Subjective Update: Omayra is a 69 year old female that presented to the ER yesterday. Patient's family was concerned she had a UTI. She admitted to family she has also been seeing 5 guys around her house that [place] to [place], but now are her neighbors. She reports that she is scared of them. She denies suicidal or homicidal ideations. Mango who is her intermediate accountant boyfriend reports the patient for several weeks has been seeing people that do not exist outside the house. He also reports that she said there was a truck that pulled up in their yard that did not exist. The patient does report that these things do exist. Patient reports that has no complaints herself. She reports she was told to come to the ER to be checked out by her family and that her boyfriend drove her here. Karthik hernandez reports having children, but no in contact. She reports her person to talk to is her boyfriend. The patient denies campos, dizziness, n, v, d, f, chest pain, shortness of breath, congestion, drainage, cough, rash, abd pain, urinary/bowel changes. The patient is fully alert and oriented on admit. 08/12/2020 Omayra states she is feeling better today. States she continues to see people which according to her boyfriend are not present. She has no complaints this morning. Patient has been afebrile. Denies any new onset of symptoms. - Review of Systems General: Reports: No Symptoms HEENT: Reports: No Symptoms Pulmonary: Reports: No Symptoms Cardiovascular: Reports: No Symptoms Gastrointestinal: Reports: No Symptoms Genitourinary: Reports: No Symptoms Musculoskeletal: Reports: No Symptoms Skin: Reports: No Symptoms Neurological: Reports: No Symptoms Psychiatric: Reports: No Symptoms - Patient Data Vitals - Most Recent: Last Vital Signs Temp 98.3 F 08/12/20 20:00 Pulse 77 08/12/20 21:45 Resp 20 08/12/20 20:00 BP 152/82 H 08/12/20 20:00 Pulse Ox 92 L 08/12/20 21:45 Weight - Most Recent: 174 lb 6.4 oz Lab Results Last 24 Hours: Laboratory Results - last 24 hr 08/12/20 08/12/20 08/12/20 Range/Units 07:14 07:14 09:59 WBC 4.5 L (5.0-10.0) 10^3/uL RBC 4.35 (4.00-5.50) 10^6/uL Hgb 11.9 L (12.0-16.0) g/dL Hct 38.3 (37.0-47.0) % MCV 88.0 (82.0-94.0) fL MCH 27.4 (27.0-32.0) pg MCHC 31.1 L (33.0-38.0) g/dL RDW Coeff of Marck 14.5 (11.0-15.0) % Plt Count 162 (150-400) 10^3/uL Neut % (Auto) 66.7 (35-85) % Lymph % (Auto) 22.1 (10-55) % [place] % (Auto) 7.7 (0-16) % Eos % (Auto) 3.3 (0-5) % Baso % (Auto) 0.2 (0-3) % Neut # (Auto) 3.02 (1.80-7.00) 10^3/uL Lymph # (Auto) 1.00 (1.00-4.80) 10^3/uL [place] # (Auto) 0.35 (0.00-0.80) 10^3/uL Eos # (Auto) 0.15 (0.00-0.45) 10^3/uL Baso # (Auto) 0.01 10^3/uL Sodium 143 (136-145) mEq/L Potassium 4.3 (3.5-5.0) mEq/L Chloride 106 (98-106) mEq/L Carbon Dioxide 31 (21-32) mmol/L BUN 11 (7-18) mg/dL Creatinine 1.2 H (0.6-1.0) mg/dL Est Cr Clr Drug Dosing 40.94 mL/min Estimated GFR (MDRD) 45 L (>=60) mL/min Glucose 112 H (75-99) mg/dL Calcium 8.5 (8.4-10.1) mg/dL SARS CoV-2 RNA Rapid MORENITA Negative (NEGATIVE) Kimo Results Last 24 Hours: Microbiology 08/11/20 19:12 Urine Culture - Preliminary Urine, Clean Catch Gram Negative Rods Med Orders - Current: Current Medications Acetaminophen (Acetaminophen 325 Mg Tab) 650 mg PO Q4H PRN PRN Reason: Pain (Mild 1-3)/fever Last Admin: 08/12/20 15:48 Dose: 650 mg Documented by: Hydrocodone Bitart/Acetaminophen (Acetaminophen/Hydrocodone 325-5 Mg Tab) 1 tab PO Q4H PRN PRN Reason: Pain (moderate 4-6) Enoxaparin Sodium (Enoxaparin 30 Mg/0.3 Ml Syringe) 30 mg SUBCUT Q24H [facility] [place] Last Admin: 08/12/20 19:53 Dose: 30 mg Documented by: Levofloxacin/Dextrose 250 mg/ (Premix) 50 mls @ 50 mls/hr IV Q24H [facility] [place] Last Admin: 08/12/20 19:53 Dose: 50 mls/hr Documented by: Levothyroxine Sodium (Levothyroxine 50 Mcg Tab) 75 mcg PO ACBREAKFAST [facility] [place] Last Admin: 08/12/20 07:47 Dose: 75 mcg Documented by: Morphine Sulfate (Morphine 2 Mg/Ml Syringe) 2 mg IVPUSH Q2H PRN PRN Reason: Pain (severe 7-10) Multivitamins/Minerals/Vitamin C (Multivitamin Tab) 1 tab PO DAILY [facility] [place] Last Admin: 08/12/20 07:51 Dose: 1 tab Documented by: (Amlodipine [Norvasc ] 10 Mg Tablet) Own Med 10 mg PO DAILY [facility] [place] Last Admin: 08/12/20 08:25 Dose: 10 mg Documented by: (Dextroamphetamine/Amphetamine [ Amphetamine Salts] 30 Mg Own Med 30 mg PO 0800,1500 [facility] [place] Last Admin: 08/12/20 15:46 Dose: 30 mg Documented by: (Duloxetine [ Cymbalta] 60 Mg Cap) Own Med 60 mg PO DAILY [facility] [place] Last Admin: 08/12/20 08:25 Dose: 60 mg Documented by: [Toviaz] 8 Mg Tab.Er (.24h) Own Med) 4 mg PO ASDIRECTED [facility] [place] (Lisinopril [Zestril ] 20 Mg Tablet) Own Med 20 mg PO 0800,1500 [facility] [place] Last Admin: 08/12/20 15:46 Dose: 20 mg Documented by: (Metoprolol Tartrate [Lopressor] 25 Mg Tablet)Own Med 25 mg PO 0800,1500 [facility] [place] Last Admin: 08/12/20 15:45 Dose: 25 mg Documented by: Ondansetron HCl (Ondansetron 4 Mg/2 Ml Sdv) 4 mg IV Q6H PRN PRN Reason: Nausea/Vomiting Temazepam (Temazepam 15 Mg Cap) 15 mg PO BEDTIME PRN PRN Reason: Insomnia Last Admin: 08/11/20 22:04 Dose: 15 mg Documented by: Discontinued Medications Sodium Chloride (Normal Saline) 1,000 mls @ 1,000 mls/hr IV .BOLUS ONE Stop: 08/11/20 19:38 Last Admin: 08/11/20 20:29 Dose: 1,000 mls/hr Documented by: Sodium Chloride (Normal Saline) 1,000 mls @ 100 mls/hr IV ASDIRECTED [facility] [place] Stop: 08/12/20 05:37 Last Admin: 08/11/20 22:05 Dose: 100 mls/hr Documented by: Levofloxacin/Dextrose 500 mg/ (Premix) 100 mls @ 100 mls/hr IV ONETIME ONE Stop: 08/11/20 20:37 Last Admin: 08/11/20 20:29 Dose: 100 mls/hr Documented by: Iopamidol (Iopamidol 755 Mg/Ml 100 Ml Bottle) 100 ml IVPUSH ONETIME ONE Stop: 08/12/20 11:30 Last Admin: 08/12/20 12:07 Dose: 100 ml Documented by: Non-Formulary Medication (Oxybutynin [Oxybutynin]) 10 mg PO 0800,1500 [facility] [place] - Exam General: Alert, Oriented, Cooperative, No Acute Distress Lungs: Clear to Auscultation, Normal Respiratory Effort Cardiovascular: Regular Rate, Regular Rhythm GI/Abdominal Exam: Normal Bowel Sounds, Soft, Non-Tender, No Organomegaly, No Distention Skin: Warm, Dry, Intact Neurological: No New Focal Deficit Psy/Mental Status: Alert, Normal Affect, Normal Mood, Hallucinations. No: Anxious, Depressed, Agitated, Suicidal Ideation, Homicidal Ideation - Patient Data Lab Results Last 24 hrs: Laboratory Results - last 24 hr 08/12/20 08/12/2021 Range/Units 07:14 07:14 09:59 WBC 4.5 L (5.0-10.0) 10^3/uL RBC 4.35 (4.00-5.50) 10^6/uL Hgb 11.9 L (12.0-16.0) g/dL Hct 38.3 (37.0-47.0) % MCV 88.0 (82.0-94.0) fL MCH 27.4 (27.0-32.0) pg MCHC 31.1 L (33.0-38.0) g/dL RDW Coeff of Marck 14.5 (11.0-15.0) % Plt Count 162 (150-400) 10^3/uL Neut % (Auto) 66.7 (35-85) % Lymph % (Auto) 22.1 (10-55) % [place] % (Auto) 7.7 (0-16) % Eos % (Auto) 3.3 (0-5) % Baso % (Auto) 0.2 (0-3) % Neut # (Auto) 3.02 (1.80-7.00) 10^3/uL Lymph # (Auto) 1.00 (1.00-4.80) 10^3/uL [place] # (Auto) 0.35 (0.00-0.80) 10^3/uL Eos # (Auto) 0.15 (0.00-0.45) 10^3/uL Baso # (Auto) 0.01 10^3/uL Sodium 143 (136-145) mEq/L Potassium 4.3 (3.5-5.0) mEq/L Chloride 106 (98-106) mEq/L Carbon Dioxide 31 (21-32) mmol/L BUN 11 (7-18) mg/dL Creatinine 1.2 H (0.6-1.0) mg/dL Est Cr Clr Drug Dosing 40.94 mL/min Estimated GFR (MDRD) 45 L (>=60) mL/min Glucose 112 H (75-99) mg/dL Calcium 8.5 (8.4-10.1) mg/dL SARS CoV-2 RNA Rapid MORENITA Negative (NEGATIVE) Result Diagrams: 08/12/20 07:14 08/12/20 07:14 Kimo Results Last 24 hrs: Microbiology 08/11/20 19:12 Urine Culture - Preliminary Urine, Clean Catch Gram Negative Rods Sepsis Event Note - Evaluation Sepsis Screening Result: No Definite Risk - Focused Exam Vital Signs: Vital Signs Temp Pulse Resp BP Pulse Ox 08/12/20 21:45 77 92 L 08/12/20 20:05 92 L 08/12/20 20:00 98.3 F 78 20 152/82 H 90 L 08/12/20 15:44 99.7 F 69 18 131/72 91 L 08/12/20 12:00 97.6 F 74 18 126/79 91 L - Problem List & Annotations (1) Hallucinations, visual SNOMED Code(s): 89332431 Code(s): R44.1 - VISUAL HALLUCINATIONS Status: Acute Current Visit: Yes (2) UTI (urinary tract infection) SNOMED Code(s): 50062567 Code(s): N39.0 - URINARY TRACT INFECTION, SITE NOT SPECIFIED Status: Acute Current Visit: Yes Qualifiers: Urinary tract infection type: acute cystitis Hematuria presence: without hematuria Qualified Code(s): N30.00 - Acute cystitis without hematuria - Problem List Review Problem List Initiated/Reviewed/Updated: Yes - My Orders Last 24 Hours: My Active Orders 08/12/20 09:43 Consult to Psychiatric Intake Coord [Behavioral Health Evaluation] [CONS] Routine CTA Chest W WO Contrast [Ang Chest] [CT] Routine 08/12/20 17:48 Saline Lock Insert [OM.PC] Routine - Plan Plan:: Chest x-ray report reviewed and concerns of left lower pneumonia. UTI was positive on admission and started on IV antibiotics. Urine culture pending. Patient did have an elevated d-dimer with history of chronic hypoxia since back surgery last year. Patient admits no known cause of hypoxia. CTA chest was not completed secondary to elevated creatinine. IV fluids given and labs repeated today. Creatinine has improved to 1.2 today and will proceed with CTA chest. Will continue IV antibiotics. Consult to psychiatry for further evaluation of hallucinations.
[2020-08-13] MEDS: LEVOTHYROXINE 75 MCG PO SCH (06:07)
[2020-08-13] MEDS: Multivitamin Tab PO SCH (07:28)
[2020-08-13] MEDS: DEXTROAMPHETAMINE PO SCH ×2 (07:29→15:23)
[2020-08-13] MEDS: AMPHETAMINE PO SCH ×2 (07:29→15:23)
[2020-08-13] MEDS: AMLODIPINE 10 MG PO SCH (07:32)
--- NOTE | 2020-08-13 12:36 | PCM.PN ---
- General Info Date of Service: 08/13/20 Admission Dx/Problem (Free Text): Admission Diagnosis/Problem Admission Diagnosis/Problem UTI, Urinary tract infectious disease Subjective Update: Omayra is a 69 year old female that presented to the ER yesterday. Patient's family was concerned she had a UTI. She admitted to family she has also been seeing 5 guys around her house that [place] live [place], but now are her neighbors. She reports that she is scared of them. She denies suicidal or homicidal ideations. Mango who is her manager terminal boyfriend reports the patient for several weeks has been seeing people that do not exist outside the house. He also reports that she said there was a truck that pulled up in their yard that did not exist. The patient does report that these things do exist. Patient reports that has no complaints herself. She reports she was told to come to the ER to be checked out by her family and that her boyfriend drove her here. Kimalexandra hernandez reports having children, but no in contact. She reports her person to talk to is her boyfriend. The patient denies campos, dizziness, n, v, d, f, chest pain, shortness of breath, congestion, drainage, cough, rash, abd pain, urinary/bowel changes. The patient is fully alert and oriented on admit. 08/12/2020 Omayra states she is feeling better today. States she continues to see people which according to her boyfriend are not present. She has no complaints this morning. Patient has been afebrile. Denies any new onset of symptoms. 08/13/2020 Omayra is in good spirits this morning. States she has gotten the best sleep she has in a long time. Continues to worry about visual hallucinations she is having at home. States she doesn't see anyone at the window in the hospital and states she feels safe. Admits she doesn't feel safe at home and is inquiring about skilled nursing placement. States her boyfriend doesn't see the people or vehicles that she has been seeing at home. She continues to be afebrile. Functional Status: Reports: Pain Controlled, Tolerating Diet, Ambulating, Urinating - Review of Systems General: Reports: Weakness HEENT: Reports: No Symptoms Pulmonary: Reports: No Symptoms Cardiovascular: Reports: No Symptoms Gastrointestinal: Reports: No Symptoms Genitourinary: Reports: No Symptoms Musculoskeletal: Reports: No Symptoms Neurological: Reports: No Symptoms Psychiatric: Reports: Hallucinations - Patient Data Vitals - Most Recent: Last Vital Signs Temp 97.9 F 08/13/20 11:19 Pulse 86 08/13/20 11:19 Resp 20 08/13/20 11:19 BP 118/65 08/13/20 11:19 Pulse Ox 92 L 08/13/20 11:19 Weight - Most Recent: 174 lb 6.4 oz Lab Results Last 24 Hours: Laboratory Results - last 24 hr 08/13/20 08/13/20 Range/Units 07:00 07:00 WBC 4.2 L (5.0-10.0) 10^3/uL RBC 4.06 (4.00-5.50) 10^6/uL Hgb 11.1 L (12.0-16.0) g/dL Hct 36.7 L (37.0-47.0) % MCV 90.4 (82.0-94.0) fL MCH 27.3 (27.0-32.0) pg MCHC 30.2 L (33.0-38.0) g/dL RDW Coeff of Marck 14.4 (11.0-15.0) % Plt Count 154 (150-400) 10^3/uL Neut % (Auto) 68.2 (35-85) % Lymph % (Auto) 19.0 (10-55) % [place] % (Auto) 9.7 (0-16) % Eos % (Auto) 2.6 (0-5) % Baso % (Auto) 0.5 (0-3) % Neut # (Auto) 2.88 (1.80-7.00) 10^3/uL Lymph # (Auto) 0.80 L (1.00-4.80) 10^3/uL [place] # (Auto) 0.41 (0.00-0.80) 10^3/uL Eos # (Auto) 0.11 (0.00-0.45) 10^3/uL Baso # (Auto) 0.02 10^3/uL Sodium 146 H (136-145) mEq/L Potassium 4.2 (3.5-5.0) mEq/L Chloride 107 H (98-106) mEq/L Carbon Dioxide 34 H (21-32) mmol/L BUN 11 (7-18) mg/dL Creatinine 1.2 H (0.6-1.0) mg/dL Est Cr Clr Drug Dosing 40.94 mL/min Estimated GFR (MDRD) 45 L (>=60) mL/min Glucose 127 H (75-99) mg/dL Calcium 8.9 (8.4-10.1) mg/dL Kimo Results Last 24 Hours: Microbiology 08/11/20 19:12 Urine Culture - Final Urine, Clean Catch Escherichia Coli Med Orders - Current: Current Medications Acetaminophen (Acetaminophen 325 Mg Tab) 650 mg PO Q4H PRN PRN Reason: Pain (Mild 1-3)/fever Last Admin: 08/12/20 15:48 Dose: 650 mg Documented by: Hydrocodone Bitart/Acetaminophen (Acetaminophen/Hydrocodone 325-5 Mg Tab) 1 tab PO Q4H PRN PRN Reason: Pain (moderate 4-6) Enoxaparin Sodium (Enoxaparin 30 Mg/0.3 Ml Syringe) 30 mg SUBCUT Q24H [facility] Last Admin: 08/12/20 19:53 Dose: 30 mg Documented by: Levofloxacin/Dextrose 250 mg/ (Premix) 50 mls @ 50 mls/hr IV Q24H [facility] Last Admin: 08/12/20 19:53 Dose: 50 mls/hr Documented by: Morphine Sulfate (Morphine 2 Mg/Ml Syringe) 2 mg IVPUSH Q2H PRN PRN Reason: Pain (severe 7-10) Multivitamins/Minerals/Vitamin C (Multivitamin Tab) 1 tab PO DAILY [facility] Last Admin: 08/13/20 07:28 Dose: 1 tab Documented by: (Amlodipine [Norvasc ] 10 Mg Tablet) Own Med 10 mg PO DAILY [facility] Last Admin: 08/13/20 07:32 Dose: 10 mg Documented by: (Dextroamphetamine/Amphetamine [ Amphetamine Salts] 30 Mg Own Med 30 mg PO 0800,1500 [facility] Last Admin: 08/13/20 07:29 Dose: 30 mg Documented by: (Duloxetine [ Cymbalta] 60 Mg Cap) Own Med 60 mg PO DAILY [facility] Last Admin: 08/13/20 07:28 Dose: 60 mg Documented by: (Lisinopril [Zestril ] 20 Mg Tablet) Own Med 20 mg PO 0800,1500 [facility] Last Admin: 08/13/20 07:29 Dose: 20 mg Documented by: (Metoprolol Tartrate [Lopressor] 25 Mg Tablet)Own Med 25 mg PO 0800,1500 [facility] Last Admin: 08/13/20 07:29 Dose: 25 mg Documented by: Nf Levothyroxine 75mcg *Patient Own Med* 1 each PO ACBREAKFAST [facility] Last Admin: 08/13/20 06:07 Dose: 1 each Documented by: Fesoterodine [Toviaz ] 4 Mg Tab.Er.24h *Own Med 0 mg PO DAILY [facility] Ondansetron HCl (Ondansetron 4 Mg/2 Ml Sdv) 4 mg IV Q6H PRN PRN Reason: Nausea/Vomiting Temazepam (Temazepam 15 Mg Cap) 15 mg PO BEDTIME PRN PRN Reason: Insomnia Last Admin: 08/11/20 22:04 Dose: 15 mg Documented by: Discontinued Medications Sodium Chloride (Normal Saline) 1,000 mls @ 1,000 mls/hr IV .BOLUS ONE Stop: 08/11/20 19:38 Last Admin: 08/11/20 20:29 Dose: 1,000 mls/hr Documented by: Sodium Chloride (Normal Saline) 1,000 mls @ 100 mls/hr IV ASDIRECTED [facility] Stop: 08/12/20 05:37 Last Admin: 08/11/20 22:05 Dose: 100 mls/hr Documented by: Levofloxacin/Dextrose 500 mg/ (Premix) 100 mls @ 100 mls/hr IV ONETIME ONE Stop: 08/11/20 20:37 Last Admin: 08/11/20 20:29 Dose: 100 mls/hr Documented by: Iopamidol (Iopamidol 755 Mg/Ml 100 Ml Bottle) 100 ml IVPUSH ONETIME ONE Stop: 08/12/20 11:30 Last Admin: 08/12/20 12:07 Dose: 100 ml Documented by: Levothyroxine Sodium (Levothyroxine 50 Mcg Tab) 75 mcg PO ACBREAKFAST [facility] Last Admin: 08/12/20 07:47 Dose: 75 mcg Documented by: [Toviaz] 8 Mg Tab.Er (.24h) Own Med) 4 mg PO ASDIRECTED [facility] Non-Formulary Medication (Oxybutynin [Oxybutynin]) 10 mg PO 0800,1500 [facility] - Exam General: Alert, Oriented, Cooperative, No Acute Distress Lungs: Clear to Auscultation, Normal Respiratory Effort Cardiovascular: Regular Rate, Regular Rhythm GI/Abdominal Exam: Normal Bowel Sounds, Soft, No Distention Extremities: Normal Inspection, No Pedal Edema Skin: Warm, Dry, Intact Psy/Mental Status: Alert, Normal Affect, Normal Mood - Patient Data Lab Results Last 24 hrs: Laboratory Results - last 24 hr 08/13/20 08/13/20 Range/Units 07:00 07:00 WBC 4.2 L (5.0-10.0) 10^3/uL RBC 4.06 (4.00-5.50) 10^6/uL Hgb 11.1 L (12.0-16.0) g/dL Hct 36.7 L (37.0-47.0) % MCV 90.4 (82.0-94.0) fL MCH 27.3 (27.0-32.0) pg MCHC 30.2 L (33.0-38.0) g/dL RDW Coeff of Marck 14.4 (11.0-15.0) % Plt Count 154 (150-400) 10^3/uL Neut % (Auto) 68.2 (35-85) % Lymph % (Auto) 19.0 (10-55) % [place] % (Auto) 9.7 (0-16) % Eos % (Auto) 2.6 (0-5) % Baso % (Auto) 0.5 (0-3) % Neut # (Auto) 2.88 (1.80-7.00) 10^3/uL Lymph # (Auto) 0.80 L (1.00-4.80) 10^3/uL [place] # (Auto) 0.41 (0.00-0.80) 10^3/uL Eos # (Auto) 0.11 (0.00-0.45) 10^3/uL Baso # (Auto) 0.02 10^3/uL Sodium 146 H (136-145) mEq/L Potassium 4.2 (3.5-5.0) mEq/L Chloride 107 H (98-106) mEq/L Carbon Dioxide 34 H (21-32) mmol/L BUN 11 (7-18) mg/dL Creatinine 1.2 H (0.6-1.0) mg/dL Est Cr Clr Drug Dosing 40.94 mL/min Estimated GFR (MDRD) 45 L (>=60) mL/min Glucose 127 H (75-99) mg/dL Calcium 8.9 (8.4-10.1) mg/dL Result Diagrams: 08/13/20 07:00 08/13/20 07:00 Kimo Results Last 24 hrs: Microbiology 08/11/20 19:12 Urine Culture - Final Urine, Clean Catch Escherichia Coli Sepsis Event Note - Evaluation Sepsis Screening Result: No Definite Risk - Focused Exam Vital Signs: Vital Signs Temp Pulse Resp BP Pulse Ox 08/13/20 11:19 97.9 F 86 20 118/65 92 L 08/13/20 07:24 97.1 F 78 18 166/79 H 93 L 08/13/20 04:00 98.3 F 78 18 141/70 H 96 - Problem List & Annotations (1) Hallucinations, visual SNOMED Code(s): 27250158 Code(s): R44.1 - VISUAL HALLUCINATIONS Status: Acute Current Visit: Yes (2) UTI (urinary tract infection) SNOMED Code(s): 14979501 Code(s): N39.0 - URINARY TRACT INFECTION, SITE NOT SPECIFIED Status: Acute Current Visit: Yes Qualifiers: Urinary tract infection type: acute cystitis Hematuria presence: without hematuria Qualified Code(s): N30.00 - Acute cystitis without hematuria - Problem List Review Problem List Initiated/Reviewed/Updated: Yes - My Orders Last 24 Hours: My Active Orders 08/12/20 17:48 Saline Lock Insert [OM.PC] Routine 08/14/20 05:11 BMP [BASIC METABOLIC PANEL,BMP] [CHEM] AM CBC WITH AUTO DIFF [HEME] AM - Plan Plan:: Chest x-ray report reviewed and concerns of left lower pneumonia. UTI was positive on admission and started on IV antibiotics. Urine culture pending. Patient did have an elevated d-dimer with history of chronic hypoxia since back surgery last year. Patient admits no known cause of hypoxia. CTA chest was not completed secondary to elevated creatinine. IV fluids given and labs repeated today. Creatinine has improved to 1.2 today and will proceed with CTA chest. Will continue IV antibiotics. Consult to psychiatry for further evaluation of hallucinations. 08/13/2020 Laboratory work is stable this morning. CTA chest negative for PE. No consolidation noted as seen on chest x-ray. Urine culture grew out E coli with sensitivity to Levaquin. Will continue IV antibiotics today. Najma will discuss skilled nursing with patient today. Will consult with Cathleen Harmon again in regards to visual hallucinations at home. PT ordered for strengthening and ambulation.
[2020-08-13] MEDS: Enoxaparin 30 MG/0.3 ML Syringe SUBCUT SCH (19:34)
[2020-08-13] MEDS: Levofloxacin/Dextrose 5%-Water 250 MG in Premix Bag 1 BAG IV SCH (19:35)
[2020-08-13] MEDS: Temazepam 15 MG Cap PO PRN (20:53)
[2020-08-14] MEDS: LEVOTHYROXINE 75 MCG PO SCH (06:02)
[2020-08-14] MEDS: Multivitamin Tab PO SCH (07:33)
[2020-08-14] MEDS: DEXTROAMPHETAMINE PO SCH (07:34)
[2020-08-14] MEDS: AMPHETAMINE PO SCH (07:34)
[2020-08-14] MEDS: AMLODIPINE 10 MG PO SCH (07:35)
[2020-08-14] MEDS ORDERED: FESOTERODINE 4 MG PO SCH (08:00)
--- NOTE | 2020-08-14 23:34 | PCM.DCSUM1 ---
Discharge Summary - Hospital Course HPI Initial Comments: See under HPI Diagnosis: Stroke: No - Discharge Data Discharge Date: 08/14/20 Discharge Disposition: DC/Tfer to SNF 03 Condition: Good - Referral to Home Health Primary Care Physician: Sandro Rajput MD - Discharge Diagnosis/Problem(s) (1) Hallucinations, visual SNOMED Code(s): 34239128 ICD Code: R44.1 - VISUAL HALLUCINATIONS Status: Acute (2) UTI (urinary tract infection) SNOMED Code(s): 23403105 ICD Code: N39.0 - URINARY TRACT INFECTION, SITE NOT SPECIFIED Status: Acute Qualifiers: Urinary tract infection type: acute cystitis Hematuria presence: without hematuria Qualified Code(s): N30.00 - Acute cystitis without hematuria (3) Generalized weakness SNOMED Code(s): 16873839 ICD Code: R53.1 - WEAKNESS Status: Acute (4) Hypoxia SNOMED Code(s): 292164773 ICD Code: R09.02 - HYPOXEMIA Status: Acute - Patient Summary/Data Consults: Consultations 08/12/20 09:43 Consult to Psychiatric Intake Coord [Behavioral Health Evaluation] [CONS] Routine 08/13/20 12:33 PT Evaluation and Treatment [CONS] Routine - Patient Instructions Diet: Usual Diet as Tolerated Activity: As Tolerated Notify Provider of: Fever, Nausea and/or Vomiting - Discharge Plan *PRESCRIPTION DRUG MONITORING PROGRAM REVIEWED*: Not Applicable *COPY OF PRESCRIPTION DRUG MONITORING REPORT IN PATIENT LACI: Not Applicable Prescriptions/Med Rec: Levofloxacin 500 mg PO DAILY #5 tablet Home Medications: Home Meds DULoxetine [Cymbalta] 60 mg PO DAILY 12/07/13 [History] Dextroamphetamine/Amphetamine [Amphetamine Salts] 30 mg PO 0800,1500 12/07/13 [History] Ibuprofen 800 mg PO BID PRN 12/07/13 [History] Levothyroxine [Synthroid] 75 mcg PO DAILY 12/07/13 [History] Lisinopril [Zestril] 20 mg PO 0800,1500 12/07/13 [History] Multivitamin [Multi-Vitamin Daily] 1 each PO DAILY 12/07/13 [History] amLODIPine [Norvasc] 10 mg PO DAILY #30 tablet 12/10/13 [Rx] Fesoterodine Fumarate [Toviaz] 4 mg PO ASDIRECTED 08/11/20 [History] Metoprolol Tartrate [Lopressor] 25 mg PO 0800,1500 08/11/20 [History] Levofloxacin 500 mg PO DAILY #5 tablet 08/14/20 [Rx] Oxygen Therapy Mode: Nasal Cannula Patient Handouts: Weakness, Boho-eb-[id number], Urinary Tract Infection, Adult Forms: ED Department Discharge - Discharge Summary/Plan Comment DC Time >30 min.: Yes Discharge Summary/Plan Comment: Patient will be discharged to [facility] today. Psychiatric evaluation will be performed. Patient has been asymptomatic in regards to hallucinations in the hospital. Will discharge on oral Levaquin with known sensitivity to E Coli from urine culture. Recommend repeat UA in 1 week. PT to evaluate and work on strengthening and ambulation with assistive device. Discussed the importance of using a walker with Omayra today. - General Info Admission Dx/Problem (Free Text: Admission Diagnosis/Problem Admission Diagnosis/Problem UTI, Urinary tract infectious disease Subjective Update: Omayra is a 69 year old female that presented to the ER yesterday. Patient's family was concerned she had a UTI. She admitted to family she has also been seeing 5 guys around her house that [place] live [place], but now are her neighbors. She reports that she is scared of them. She denies suicidal or homicidal ideations. Mango who is her terminal superintendent boyfriend reports the patient for several weeks has been seeing people that do not exist outside the house. He also reports that she said there was a truck that pulled up in their yard that did not exist. The patient does report that these things do exist. Patient reports that has no complaints herself. She reports she was told to come to the ER to be checked out by her family and that her boyfriend drove her here. Patient reports having children, but no in contact. She reports her person to talk to is her boyfriend. The patient denies campos, dizziness, n, v, d, f, chest pain, shortness of breath, congestion, drainage, cough, rash, abd pain, urinary/bowel changes. The patient is fully alert and oriented on admit. 08/12/2020 Omayra states she is feeling better today. States she continues to see people which according to her boyfriend are not present. She has no complaints this morning. Patient has been afebrile. Denies any new onset of symptoms. 08/13/2020 Omayra is in good spirits this morning. States she has gotten the best sleep she has in a long time. Continues to worry about visual hallucinations she is having at home. States she doesn't see anyone at the window in the hospital and states she feels safe. Admits she doesn't feel safe at home and is inquiring about penitentiary placement. States her boyfriend doesn't see the people or vehicles that she has been seeing at home. She continues to be afebrile. 08/14/2020 Omayra continues to feel better every day. Admits to some weakness still and feels ready to be sent to local penitentiary. Denies any concerns. Denies any hallucinations while in the hospital. Functional Status: Reports: Pain Controlled, Tolerating Diet - Review of Systems General: Reports: No Symptoms HEENT: Reports: No Symptoms Pulmonary: Reports: No Symptoms Cardiovascular: Reports: No Symptoms Gastrointestinal: Reports: No Symptoms Genitourinary: Reports: No Symptoms Musculoskeletal: Reports: No Symptoms Skin: Reports: No Symptoms Neurological: Reports: No Symptoms Psychiatric: Reports: No Symptoms - Patient Data Vitals - Most Recent: Last Vital Signs Temp 98 F 08/14/20 07:33 Pulse 74 08/14/20 07:33 Resp 18 08/14/20 07:33 BP 111/56 L 08/14/20 07:33 Pulse Ox 92 L 08/14/20 07:33 Weight - Most Recent: 174 lb 6.4 oz Lab Results - Last 24 hrs: Laboratory Results - last 24 hr 08/14/20 08/14/20 Range/Units 07:08 07:08 WBC 4.9 L (5.0-10.0) 10^3/uL RBC 4.12 (4.00-5.50) 10^6/uL Hgb 11.2 L (12.0-16.0) g/dL Hct 37.3 (37.0-47.0) % MCV 90.5 (82.0-94.0) fL MCH 27.2 (27.0-32.0) pg MCHC 30.0 L (33.0-38.0) g/dL RDW Coeff of Marck 14.3 (11.0-15.0) % Plt Count 150 (150-400) 10^3/uL Neut % (Auto) 72.8 (35-85) % Lymph % (Auto) 16.5 (10-55) % [place] % (Auto) 7.4 (0-16) % Eos % (Auto) 2.9 (0-5) % Baso % (Auto) 0.4 (0-3) % Neut # (Auto) 3.54 (1.80-7.00) 10^3/uL Lymph # (Auto) 0.80 L (1.00-4.80) 10^3/uL [place] # (Auto) 0.36 (0.00-0.80) 10^3/uL Eos # (Auto) 0.14 (0.00-0.45) 10^3/uL Baso # (Auto) 0.02 10^3/uL Sodium 142 (136-145) mEq/L Potassium 4.3 (3.5-5.0) mEq/L Chloride 105 (98-106) mEq/L Carbon Dioxide 34 H (21-32) mmol/L BUN 12 (7-18) mg/dL Creatinine 1.0 (0.6-1.0) mg/dL Est Cr Clr Drug Dosing 49.12 mL/min Estimated GFR (MDRD) 55 L (>=60) mL/min Glucose 119 H (75-99) mg/dL Calcium 8.8 (8.4-10.1) mg/dL Med Orders - Current: Current Medications Discontinued Medications Acetaminophen (Acetaminophen 325 Mg Tab) 650 mg PO Q4H PRN PRN Reason: Pain (Mild 1-3)/fever Last Admin: 08/12/20 15:48 Dose: 650 mg Documented by: Hydrocodone Bitart/Acetaminophen (Acetaminophen/Hydrocodone 325-5 Mg Tab) 1 tab PO Q4H PRN PRN Reason: Pain (moderate 4-6) Enoxaparin Sodium (Enoxaparin 30 Mg/0.3 Ml Syringe) 30 mg SUBCUT Q24H [facility] Last Admin: 08/13/20 19:34 Dose: 30 mg Documented by: Sodium Chloride (Normal Saline) 1,000 mls @ 1,000 mls/hr IV .BOLUS ONE Stop: 08/11/20 19:38 Last Admin: 08/11/20 20:29 Dose: 1,000 mls/hr Documented by: Sodium Chloride (Normal Saline) 1,000 mls @ 100 mls/hr IV ASDIRECTED [facility] Stop: 08/12/20 05:37 Last Admin: 08/11/20 22:05 Dose: 100 mls/hr Documented by: Levofloxacin/Dextrose 500 mg/ (Premix) 100 mls @ 100 mls/hr IV ONETIME ONE Stop: 08/11/20 20:37 Last Admin: 08/11/20 20:29 Dose: 100 mls/hr Documented by: Levofloxacin/Dextrose 250 mg/ (Premix) 50 mls @ 50 mls/hr IV Q24H [facility] Last Admin: 08/13/20 19:35 Dose: 50 mls/hr Documented by: Iopamidol (Iopamidol 755 Mg/Ml 100 Ml Bottle) 100 ml IVPUSH ONETIME ONE Stop: 08/12/20 11:30 Last Admin: 08/12/20 12:07 Dose: 100 ml Documented by: Levothyroxine Sodium (Levothyroxine 50 Mcg Tab) 75 mcg PO ACBREAKFAST [facility] Last Admin: 08/12/20 07:47 Dose: 75 mcg Documented by: Morphine Sulfate (Morphine 2 Mg/Ml Syringe) 2 mg IVPUSH Q2H PRN PRN Reason: Pain (severe 7-10) Multivitamins/Minerals/Vitamin C (Multivitamin Tab) 1 tab PO DAILY [facility] Last Admin: 08/14/20 07:33 Dose: 1 tab Documented by: (Amlodipine [Norvasc ] 10 Mg Tablet) Own Med 10 mg PO DAILY [facility] Last Admin: 08/14/20 07:35 Dose: 10 mg Documented by: (Dextroamphetamine/Amphetamine [ Amphetamine Salts] 30 Mg Own Med 30 mg PO 0800,1500 [facility] Last Admin: 08/14/20 07:34 Dose: 30 mg Documented by: (Duloxetine [ Cymbalta] 60 Mg Cap) Own Med 60 mg PO DAILY [facility] Last Admin: 08/14/20 07:35 Dose: 60 mg Documented by: [Toviaz] 8 Mg Tab.Er (.24h) Own Med) 4 mg PO ASDIRECTED [facility] (Lisinopril [Zestril ] 20 Mg Tablet) Own Med 20 mg PO 0800,1500 [facility] Last Admin: 08/14/20 07:35 Dose: 20 mg Documented by: (Metoprolol Tartrate [Lopressor] 25 Mg Tablet)Own Med 25 mg PO 0800,1500 [facility] Last Admin: 08/14/20 07:34 Dose: 25 mg Documented by: Non-Formulary Medication (Oxybutynin [Oxybutynin]) 10 mg PO 0800,1500 [facility] Nf Levothyroxine 75mcg *Patient Own Med* 1 each PO ACBREAKFAST [facility] Last Admin: 08/14/20 06:02 Dose: 1 each Documented by: Fesoterodine [Toviaz ] 4 Mg Tab.Er.24h *Own Med 0 mg PO DAILY [facility] Last Admin: 08/14/20 07:35 Dose: 4 mg Documented by: Ondansetron HCl (Ondansetron 4 Mg/2 Ml Sdv) 4 mg IV Q6H PRN PRN Reason: Nausea/Vomiting Temazepam (Temazepam 15 Mg Cap) 15 mg PO BEDTIME PRN PRN Reason: Insomnia Last Admin: 08/13/20 20:53 Dose: 15 mg Documented by: - Exam General: Reports: Alert, Oriented, Cooperative, No Acute Distress Neck: Reports: Supple Lungs: Reports: Clear to Auscultation, Normal Respiratory Effort Cardiovascular: Reports: Regular Rate, Regular Rhythm GI/Abdominal Exam: Normal Bowel Sounds, Soft, Non-Tender, No Organomegaly, No Distention Extremities: Normal Inspection, No Pedal Edema Skin: Reports: Warm, Dry, Intact Wound/Incisions: Reports: Healing Well Neurological: Reports: No New Focal Deficit Psy/Mental Status: Reports: Alert, Normal Affect, Normal Mood. Denies: Hallucinations
== END 2020-08-14 10:50 ==
LOC: CC.ED 16:57 → CC.MS 19:20 → UNDOADMOB 19:26
PROVIDERS: ADMIT Nurse Practitioner; ATTEND Family Medicine
DX: R44.1 Visual hallucinations (principal); N39.0 Urinary tract infection, site not specified; R09.02 Hypoxemia; I10 Essential (primary) hypertension; E03.9 Hypothyroidism, unspecified; Z90.49 Acquired absence of other specified parts of digestive tract; Z87.891 Personal history of nicotine dependence; Z79.899 Other long term (current) drug therapy; Z79.890 Hormone replacement therapy; Z20.822 Contact with and (suspected) exposure to COVID-19
CPT/HCPCS: 36415; 51701; 70450; 71046; 71275; 80048; 80053; 80305-QW; 80307; 81001; 85025; 85379; 87086; 87088; 87186; 96365; 96366; 96372; 97161-GP; 99217; 99220; 99225; 99285-25; A9270-GY; G0378; J1650; J1956; J7030; Q9967; U0002

== ENCOUNTER 2020-12-14 18:06 | Inpatient (IN) | payer MEDICARE, MEDICAID ==
[2020-12-14 19:01] LABS: CHLORIDE,CL 105 mEq/L (98-106); SODIUM,NA 146 mEq/L (136-145)
--- NOTE | 2020-12-14 19:05 | EDM.PDOC ---
ED HPI GENERAL MEDICAL PROBLEM - General Chief Complaint: General Stated Complaint: hallucinations Time Seen by Provider: 12/14/20 18:20 Source of Information: Reports: Patient, Significant Other History Limitations: Reports: No Limitations - History of Present Illness INITIAL COMMENTS - FREE TEXT/NARRATIVE: Omayra is a 70 year old female presents to ER with significant other with shortness of breath, confusion. States he came home from [facility] and found her stuffing a bunch of stuff in a bag. Was not wearing her oxygen which he states she is to be on at all times. She has been seeing people and hearing things that aren't there and "gets scared". This has been ongoing for many months. [facility] and was seeing the psychiatrist there. Was started on Invega for the hallucinations/schizophrenia but she refuses to take it due to diarrhea. [facility] only at the [facility] for one month per SO and checked herself out. He relates he basically does everything for her. She mostly lays in bed all day. Brings her food to her there. Helps her bathe and to the bathroom. Is incontinent of urine when he is not there. She apparently called his [id number] a couple days ago and today states "she came and chased away the people". Patient states she is able to dress herself and does get in to the tub but only bathes if they are going to go somewhere. patient was short of breath on arrival, hypoxic. Feels better after the oxygen was again started here. Admit to ongoing diarrhea. No nausea or vomiting, no abdominal pain. No chest pain. Duration: Chronic, Waxing/Waning Location: Reports: Chest, Generalized Associated Symptoms: Reports: Confusion, Cough, Shortness of Breath. Denies: Chest Pain, cough w sputum, Fever/Chills, Headaches, Loss of Appetite, Nausea/Vomiting - Related Data Allergies Allergy/AdvReac Type Severity Reaction Status Date / Time No Known Allergies Allergy Verified 12/14/20 18:11 Home Meds: Home Meds DULoxetine [Cymbalta] 60 mg PO DAILY 12/07/13 [History] Dextroamphetamine/Amphetamine [Amphetamine Salts] 30 mg PO 0800,1500 12/07/13 [History] Ibuprofen 800 mg PO BID PRN 12/07/13 [History] Levothyroxine [Synthroid] 75 mcg PO DAILY 12/07/13 [History] Lisinopril [Zestril] 20 mg PO 0800,1500 12/07/13 [History] Multivitamin [Multi-Vitamin Daily] 1 each PO DAILY 12/07/13 [History] amLODIPine [Norvasc] 10 mg PO DAILY #30 tablet 12/10/13 [Rx] Fesoterodine Fumarate [Toviaz] 4 mg PO ASDIRECTED 08/11/20 [History] Metoprolol Tartrate [Lopressor] 25 mg PO 0800,1500 08/11/20 [History] Levofloxacin 500 mg PO DAILY #5 tablet 08/14/20 [Rx] Past Medical History Cardiovascular History: Reports: Hypertension Respiratory History: Reports: COPD, SOB Psychiatric History: Reports: ADHD, Depression, Hallucinations, Schizophrenia Endocrine/Metabolic History: Reports: Hypothyroidism - Past Surgical History GI Surgical History: Reports: Cholecystectomy Social & Family History - Family History Family Medical History: Unobtainable - Tobacco Use Tobacco Use Status *Q: Current Status Unknown Second Hand Smoke Exposure: Yes - Caffeine Use Caffeine Use: Reports: Soda ED ROS GENERAL - Review of Systems Review Of Systems: See Below Constitutional: Reports: Malaise, Weakness, Fatigue. Denies: Fever, Chills HEENT: Reports: Rhinitis. Denies: Ear Pain, Throat Pain Respiratory: Reports: Shortness of Breath, Cough. Denies: Sputum Cardiovascular: Denies: Chest Pain, Edema, Lightheadedness Endocrine: Reports: Fatigue GI/Abdominal: Reports: Diarrhea. Denies: Abdominal Pain, Nausea, Vomiting : Reports: Incontinence Musculoskeletal: Reports: Back Pain Skin: Reports: Pallor Neurological: Reports: Weakness Psychiatric: Reports: No Symptoms ED EXAM, GENERAL - Physical Exam Exam: See Below Exam Limited By: No Limitations General Appearance: Alert, WD/WN, Mild Distress Ears: Normal External Exam, Normal TMs Nose: Normal Inspection, Normal Mucosa, No Blood Throat/Mouth: Normal Inspection, Normal Oropharynx, Other Head: Normocephalic, Other (has dried food to face) Neck: Normal Inspection, Supple, Non-Tender Respiratory/Chest: Decreased Breath Sounds Cardiovascular: Regular Rate, Rhythm GI/Abdominal: Normal Bowel Sounds, Soft, Non-Tender Extremities: Normal Inspection, No Pedal Edema Neurological: Alert, Oriented, Other (does relate that she sees people at home in the window and it "scares her") Psychiatric: Flat Affect, Other (patient unkempt on arrival, incontinent of large amount of urine) Skin Exam: Warm, Dry Course - Vital Signs Last Recorded V/S: Last Vital Signs Temp 96.3 F L 12/14/20 18:13 Pulse 99 12/14/20 18:13 Resp 20 12/14/20 18:13 BP 168/80 H 12/14/20 18:13 Pulse Ox 89 L 12/14/20 18:13 - Orders/Labs/Meds Orders: Active Orders 24 hr Category Date Time Status Ang Chest [CT] Stat Exams 12/14/20 19:30 Taken Chest 2V [CR] Stat Exams 12/14/20 18:18 Taken Labs: Laboratory Tests 12/14/20 12/14/20 12/14/20 Range/Units 18:18 18:39 18:39 WBC 5.1 (4.0-11.0) 10^3/uL RBC 4.10 (4.00-5.50) x10^6/uL Hgb 11.4 L (12.0-16.0) g/dL Hct 38.3 (37.0-47.0) % MCV 93.4 (83.0-97.0) fL MCH 27.8 (27.0-32.0) pg MCHC 29.8 L (32.0-36.0) g/dL RDW Coeff of [place] 13.3 (11.0-15.0) % Plt Count 141 L (150-400) 10^3/uL Immature Gran % (Auto) 0.8 (0.0-4.9) % Neut % (Auto) 78.8 H (41-71) % Lymph % (Auto) 12.5 L (24-44) % [place] % (Auto) 6.7 (0-10) % Eos % (Auto) 0.6 (0-6) % Baso % (Auto) 0.6 (0-1) % Neut # (Auto) 4.03 (1.80-8.00) x10^3/uL Lymph # (Auto) 0.64 (0.60-5.00) 10^3/uL [place] # (Auto) 0.34 (0.00-1.50) 10^3/uL Eos # (Auto) 0.03 (0.00-1.50) 10^3/uL Baso # (Auto) 0.03 (0.00-0.50) 10^3/uL Immature Gran # (Auto) 0.04 (0.00-0.49) 10^3/uL D-Dimer, Quantitative (0.00-0.50) Sodium 146 H (136-145) mEq/L Potassium 3.3 L D (3.5-5.0) mEq/L Chloride 105 (98-106) mEq/L Carbon Dioxide 35 H (21-32) mmol/L BUN 19 H (7-18) mg/dL Creatinine 1.3 H (0.6-1.0) mg/dL Est Cr Clr Drug Dosing 35.76 mL/min Estimated GFR (MDRD) 41 L (>=60) mL/min Glucose 124 H (75-99) mg/dL Calcium 9.1 (8.4-10.1) mg/dL Total Bilirubin 0.3 (0.0-1.0) mg/dL AST 25 (15-37) U/L ALT 21 (12-78) U/L Alkaline Phosphatase 102 (46-116) U/L Troponin I < 0.017 (0.00-0.06) ng/mL C-Reactive Protein < 0.2 L (0.2-0.8) mg/dL NT-Pro-B Natriuret Pep 83 (0-1000) pg/mL Total Protein 7.8 (6.4-8.2) g/dL Albumin 3.6 (3.4-5.0) g/dL Urine Color Yellow (YELLOW) Urine Appearance Clear (CLEAR) Urine pH 5.5 (4.5-8.0) Ur Specific [place] 1.025 H (1.003-1.020) Urine Protein 30 H (NEGATIVE) mg/dL Urine Glucose (UA) Negative (NEGATIVE) mg/dL Urine Ketones Negative (NEGATIVE) mg/dL Urine Occult Blood Negative (NEGATIVE) Urine Nitrite Negative (NEGATIVE) Urine Bilirubin Negative (NEGATIVE) Urine Urobilinogen 0.2 (0.2-1.0) EU/dL Ur Leukocyte Esterase Negative (NEGATIVE) Urine RBC Not seen (0-5) /HPF Urine WBC Not seen (0-5) /HPF 07/24/21 Range/Units 18:39 WBC (4.0-11.0) 10^3/uL RBC (4.00-5.50) x10^6/uL Hgb (12.0-16.0) g/dL Hct (37.0-47.0) % MCV (83.0-97.0) fL MCH (27.0-32.0) pg MCHC (32.0-36.0) g/dL RDW Coeff of [place] (11.0-15.0) % Plt Count (150-400) 10^3/uL Immature Gran % (Auto) (0.0-4.9) % Neut % (Auto) (41-71) % Lymph % (Auto) (24-44) % [place] % (Auto) (0-10) % Eos % (Auto) (0-6) % Baso % (Auto) (0-1) % Neut # (Auto) (1.80-8.00) x10^3/uL Lymph # (Auto) (0.60-5.00) 10^3/uL [place] # (Auto) (0.00-1.50) 10^3/uL Eos # (Auto) (0.00-1.50) 10^3/uL Baso # (Auto) (0.00-0.50) 10^3/uL Immature Gran # (Auto) (0.00-0.49) 10^3/uL D-Dimer, Quantitative 6.02 H (0.00-0.50) Sodium (136-145) mEq/L Potassium (3.5-5.0) mEq/L Chloride (98-106) mEq/L Carbon Dioxide (21-32) mmol/L BUN (7-18) mg/dL Creatinine (0.6-1.0) mg/dL Est Cr Clr Drug Dosing mL/min Estimated GFR (MDRD) (>=60) mL/min Glucose (75-99) mg/dL Calcium (8.4-10.1) mg/dL Total Bilirubin (0.0-1.0) mg/dL AST (15-37) U/L ALT (12-78) U/L Alkaline Phosphatase (46-116) U/L Troponin I (0.00-0.06) ng/mL C-Reactive Protein (0.2-0.8) mg/dL NT-Pro-B Natriuret Pep (0-1000) pg/mL Total Protein (6.4-8.2) g/dL Albumin (3.4-5.0) g/dL Urine Color (YELLOW) Urine Appearance (CLEAR) Urine pH (4.5-8.0) Ur Specific [place] (1.003-1.020) Urine Protein (NEGATIVE) mg/dL Urine Glucose (UA) (NEGATIVE) mg/dL Urine Ketones (NEGATIVE) mg/dL Urine Occult Blood (NEGATIVE) Urine Nitrite (NEGATIVE) Urine Bilirubin (NEGATIVE) Urine Urobilinogen (0.2-1.0) EU/dL Ur Leukocyte Esterase (NEGATIVE) Urine RBC (0-5) /HPF Urine WBC (0-5) /HPF Meds: Medications Discontinued Medications Generic Name Dose Route Start Last Admin Trade Name Freq PRN Reason Stop Dose Admin Iopamidol 100 ml 12/14/20 19:31 12/14/20 19:49 Iopamidol 755 Mg/Ml 100 Ml Bottle IVPUSH 12/14/20 19:32 100 ml ONETIME ONE Administration - Re-Assessments/Exams Free Text/Narrative Re-Assessment/Exam: 12/14/20 19:48 Labs noted. Potassium mildly low, sodium mildly high. WBC, CRP normal. Creatinine mildly elevated at 1.3. D-Dimer is high at 6.02. Will proceed with CTA of chest. Much discussion held with patient and significant other and her inability to care for self at home in regards to hygiene, activity level, food intake, meds, etc. Does not do much but lay in bed all day. She states she did not like the [facility] and will not go back there. SO reports he did file a complaint against a [employer] as she did not take good care of her. Patient states she "doesn't like the attitudes of the staff there". Is willing to consider [facility]. Will have social work nurse consult on admit in regards to discharge plan as SO does still farm and is not always present to care for her. 12/14/20 20:54 CTA negative for PE. No infiltrate. Departure - Departure Time of Disposition: 20:00 Disposition: Admitted As Inpatient 68 Condition: Fair Clinical Impression: Generalized weakness, Hypoxia - Discharge Information *PRESCRIPTION DRUG MONITORING PROGRAM REVIEWED*: No *COPY OF PRESCRIPTION DRUG MONITORING REPORT IN PATIENT LACI: No Sepsis Event Note (ED) - Evaluation Sepsis Screening Result: No Definite Risk - Focused Exam Vital Signs: Vital Signs Temp Pulse Resp BP Pulse Ox 12/14/20 18:13 96.3 F L 99 20 168/80 H 89 L - Problem List & Annotations (1) Hallucinations, visual SNOMED Code(s): 54820616 Code(s): R44.1 - VISUAL HALLUCINATIONS Status: Acute Priority: High Current Visit: Yes (2) Generalized weakness SNOMED Code(s): 03319195 Code(s): R53.1 - WEAKNESS Status: Acute Priority: High Current Visit: Yes (3) Hypoxia SNOMED Code(s): 786066857 Code(s): R09.02 - HYPOXEMIA Status: Acute Priority: High Current Visit: Yes (4) Failure to thrive in adult SNOMED Code(s): 774730732 Code(s): R62.7 - ADULT FAILURE TO THRIVE Status: Acute Priority: High Current Visit: Yes - Problem List Review Problem List Initiated/Reviewed/Updated: Yes - My Orders Last 24 Hours: My Active Orders 12/14/20 18:18 Chest 2V [CR] Stat 12/14/20 19:30 Ang Chest [CT] Stat - Assessment/Plan Admission H&P: Please use this note as an admission H&P Last 24 Hours: My Active Orders 12/14/20 18:18 Chest 2V [CR] Stat 12/14/20 19:30 Ang Chest [CT] Stat Assessment:: Weakness Hypoxia Visual Hallucinations Failure to thrive Plan: Admit to inpatient. PT to evaluate and treat. sales representative facility services consult for discharge planning as vulnerable adult. Oxygen to keep sats greater than 92%.
[2020-12-14] MEDS ORDERED: Iopamidol 755 Mg/ML 100 ML Bottle IVPUSH ONE (19:31)
[2020-12-14] MEDS ORDERED: Ibuprofen 200 MG Tab PO PRN (21:01)
[2020-12-14] MEDS ORDERED: Enoxaparin 30 MG/0.3 ML Syringe SUBCUT SCH (21:12)
[2020-12-14] MEDS ORDERED: Ondansetron 4 MG Tab.DIS PO PRN (21:12)
[2020-12-14] MEDS ORDERED: Ondansetron 4 MG/2 ML SDV IV PRN (21:12)
[2020-12-14] MEDS ORDERED: Sodium Chloride 0.9% 10 ML Syringe FLUSH PRN (21:12)
[2020-12-14] MEDS ORDERED: FESOTERODINE FUMARATE 8 MG PO SCH (21:15)
[2020-12-15] MEDS: Levothyroxine 50 MCG Tab PO SCH (06:40)
[2020-12-15] MEDS: DULoxetine 30 MG Cap PO SCH (07:35)
[2020-12-15] MEDS: Multivitamin Tab PO SCH (07:36)
[2020-12-15] MEDS: Metoprolol Tartrate 25 MG Tab PO SCH ×2 (07:36→15:33)
[2020-12-15] MEDS: amLODIPine 10 MG Tab PO SCH (07:36)
[2020-12-15] MEDS: Lisinopril 20 MG Tab PO SCH ×2 (07:36→15:33)
--- NOTE | 2020-12-15 07:50 | PCM.PN ---
- General Info Date of Service: 12/15/20 Admission Dx/Problem (Free Text): Weakness Visual Hallucinations Hypoxia Failure to Thrive Subjective Update: Patient slept well through night. No pain. Was incontinent of urine and stool during the night, did not call for any assistance. No hallucinations through the night. Denies shortness of breath this am. Did take her oxygen off during the night and sats dropped to 78% again. Had to increase oxygen to 6 liters to get sats greater than 90%. Able to reduce down to 4 liters after a period of time. Vital signs stable Functional Status: Reports: Pain Controlled, Tolerating Diet. Denies: Ambulating - Review of Systems General: Reports: Weakness, Fatigue, Malaise HEENT: Reports: No Symptoms Pulmonary: Denies: Shortness of Breath Cardiovascular: Denies: Chest Pain, Lightheadedness Gastrointestinal: Denies: Abdominal Pain, Nausea, Vomiting Genitourinary: Reports: Incontinence Musculoskeletal: Reports: No Symptoms Skin: Reports: No Symptoms Neurological: Reports: Weakness - Patient Data Vitals - Most Recent: Last Vital Signs Temp 97.8 F 12/15/20 03:54 Pulse 90 12/15/20 07:36 Resp 20 12/15/20 03:54 BP 141/68 H 12/15/20 07:36 Pulse Ox 93 L 12/15/20 05:20 Weight - Most Recent: 178 lb 1.6 oz Lab Results Last 24 Hours: Laboratory Results - last 24 hr 12/14/20 12/14/20 12/14/20 Range/Units 18:18 18:39 18:39 WBC 5.1 (4.0-11.0) 10^3/uL RBC 4.10 (4.00-5.50) x10^6/uL Hgb 11.4 L (12.0-16.0) g/dL Hct 38.3 (37.0-47.0) % MCV 93.4 (83.0-97.0) fL MCH 27.8 (27.0-32.0) pg MCHC 29.8 L (32.0-36.0) g/dL RDW Coeff of [place]ck 13.3 (11.0-15.0) % Plt Count 141 L (150-400) 10^3/uL Immature Gran % (Auto) 0.8 (0.0-4.9) % Neut % (Auto) 78.8 H (41-71) % Lymph % (Auto) 12.5 L (24-44) % [place] % (Auto) 6.7 (0-10) % Eos % (Auto) 0.6 (0-6) % Baso % (Auto) 0.6 (0-1) % Neut # (Auto) 4.03 (1.80-8.00) x10^3/uL Lymph # (Auto) 0.64 (0.60-5.00) 10^3/uL [place] # (Auto) 0.34 (0.00-1.50) 10^3/uL Eos # (Auto) 0.03 (0.00-1.50) 10^3/uL Baso # (Auto) 0.03 (0.00-0.50) 10^3/uL Immature Gran # (Auto) 0.04 (0.00-0.49) 10^3/uL D-Dimer, Quantitative (0.00-0.50) Sodium 146 H (136-145) mEq/L Potassium 3.3 L D (3.5-5.0) mEq/L Chloride 105 (98-106) mEq/L Carbon Dioxide 35 H (21-32) mmol/L BUN 19 H (7-18) mg/dL Creatinine 1.3 H (0.6-1.0) mg/dL Est Cr Clr Drug Dosing 35.76 mL/min Estimated GFR (MDRD) 41 L (>=60) mL/min Glucose 124 H (75-99) mg/dL Calcium 9.1 (8.4-10.1) mg/dL Total Bilirubin 0.3 (0.0-1.0) mg/dL AST 25 (15-37) U/L ALT 21 (12-78) U/L Alkaline Phosphatase 102 (46-116) U/L Troponin I < 0.017 (0.00-0.06) ng/mL C-Reactive Protein < 0.2 L (0.2-0.8) mg/dL NT-Pro-B Natriuret Pep 83 (0-1000) pg/mL Total Protein 7.8 (6.4-8.2) g/dL Albumin 3.6 (3.4-5.0) g/dL Urine Color Yellow (YELLOW) Urine Appearance Clear (CLEAR) Urine pH 5.5 (4.5-8.0) Ur Specific [place] 1.025 H (1.003-1.020) Urine Protein 30 H (NEGATIVE) mg/dL Urine Glucose (UA) Negative (NEGATIVE) mg/dL Urine Ketones Negative (NEGATIVE) mg/dL Urine Occult Blood Negative (NEGATIVE) Urine Nitrite Negative (NEGATIVE) Urine Bilirubin Negative (NEGATIVE) Urine Urobilinogen 0.2 (0.2-1.0) EU/dL Ur Leukocyte Esterase Negative (NEGATIVE) Urine RBC Not seen (0-5) /HPF Urine WBC Not seen (0-5) /HPF 12/14/20 12/15/20 12/15/20 Range/Units 18:39 07:00 07:00 WBC 4.9 (4.0-11.0) 10^3/uL RBC 3.71 L (4.00-5.50) x10^6/uL Hgb 10.3 L (12.0-16.0) g/dL Hct 35.3 L (37.0-47.0) % MCV 95.1 (83.0-97.0) fL MCH 27.8 (27.0-32.0) pg MCHC 29.2 L (32.0-36.0) g/dL RDW Coeff of [place] 13.4 (11.0-15.0) % Plt Count 121 L (150-400) 10^3/uL Immature Gran % (Auto) 1.4 (0.0-4.9) % Neut % (Auto) 76.6 H (41-71) % Lymph % (Auto) 14.6 L (24-44) % [place] % (Auto) 6.2 (0-10) % Eos % (Auto) 0.6 (0-6) % Baso % (Auto) 0.6 (0-1) % Neut # (Auto) 3.71 (1.80-8.00) x10^3/uL Lymph # (Auto) 0.71 (0.60-5.00) 10^3/uL [place] # (Auto) 0.30 (0.00-1.50) 10^3/uL Eos # (Auto) 0.03 (0.00-1.50) 10^3/uL Baso # (Auto) 0.03 (0.00-0.50) 10^3/uL Immature Gran # (Auto) 0.07 (0.00-0.49) 10^3/uL D-Dimer, Quantitative 6.02 H (0.00-0.50) Sodium 144 (136-145) mEq/L Potassium 3.7 (3.5-5.0) mEq/L Chloride 105 (98-106) mEq/L Carbon Dioxide 37 H (21-32) mmol/L BUN 15 (7-18) mg/dL Creatinine 1.0 (0.6-1.0) mg/dL Est Cr Clr Drug Dosing 46.50 mL/min Estimated GFR (MDRD) 55 L (>=60) mL/min Glucose 129 H (75-99) mg/dL Calcium 8.6 (8.4-10.1) mg/dL Total Bilirubin (0.0-1.0) mg/dL AST (15-37) U/L ALT (12-78) U/L Alkaline Phosphatase (46-116) U/L Troponin I (0.00-0.06) ng/mL C-Reactive Protein (0.2-0.8) mg/dL NT-Pro-B Natriuret Pep (0-1000) pg/mL Total Protein (6.4-8.2) g/dL Albumin (3.4-5.0) g/dL Urine Color (YELLOW) Urine Appearance (CLEAR) Urine pH (4.5-8.0) Ur Specific [place] (1.003-1.020) Urine Protein (NEGATIVE) mg/dL Urine Glucose (UA) (NEGATIVE) mg/dL Urine Ketones (NEGATIVE) mg/dL Urine Occult Blood (NEGATIVE) Urine Nitrite (NEGATIVE) Urine Bilirubin (NEGATIVE) Urine Urobilinogen (0.2-1.0) EU/dL Ur Leukocyte Esterase (NEGATIVE) Urine RBC (0-5) /HPF Urine WBC (0-5) /HPF Med Orders - Current: Current Medications Amlodipine Besylate (Amlodipine 10 Mg Tab) 10 mg PO DAILY [facility] Last Admin: 12/15/20 07:36 Dose: 10 mg Documented by: Duloxetine HCl (Duloxetine 30 Mg Cap) 60 mg PO DAILY [facility] Last Admin: 12/15/20 07:35 Dose: 60 mg Documented by: Enoxaparin Sodium (Enoxaparin 40 Mg/0.4 Ml Syringe) 40 mg SUBCUT Q24H [facility] Ibuprofen (Ibuprofen 200 Mg Tab) 800 mg PO BID PRN PRN Reason: Pain Levothyroxine Sodium (Levothyroxine 50 Mcg Tab) 75 mcg PO ACBREAKFAST [facility] Last Admin: 12/15/20 06:40 Dose: 75 mcg Documented by: Lisinopril (Lisinopril 20 Mg Tab) 20 mg PO BID@0800,1500 [facility] Last Admin: 12/15/20 07:36 Dose: 20 mg Documented by: Metoprolol Tartrate (Metoprolol Tartrate 25 Mg Tab) 25 mg PO BID@0800,1500 [facility] Last Admin: 12/15/20 07:36 Dose: 25 mg Documented by: Multivitamins/Minerals/Vitamin C (Multivitamin Tab) 1 tab PO DAILY [facility] Last Admin: 12/15/20 07:36 Dose: 1 tab Documented by: Non-Formulary Medication (Dextroamphetamine/Amphetamine [Amphetamine Salts]) 30 mg PO 0800,1500 [facility] Non-Formulary Medication (Fesoterodine Fumarate [Toviaz]) 4 mg PO ASDIRECTED [facility] Ondansetron HCl (Ondansetron 4 Mg Tab.Dis) 4 mg PO Q4H PRN PRN Reason: nausea, able to take PO Ondansetron HCl (Ondansetron 4 Mg/2 Ml Sdv) 4 mg IV Q4H PRN PRN Reason: Nausea/Vomiting Sodium Chloride (Sodium Chloride 0.9% 10 Ml Syringe) 10 ml FLUSH ASDIRECTED PRN PRN Reason: Keep Vein Open Discontinued Medications Iopamidol (Iopamidol 755 Mg/Ml 100 Ml Bottle) 100 ml IVPUSH ONETIME ONE Stop: 12/14/20 19:32 Last Admin: 12/14/20 19:49 Dose: 100 ml Documented by: - Exam General: Alert, Oriented, Cooperative HEENT: Mucous Membr. Moist/[place] Neck: Supple Lungs: Clear to Auscultation, Normal Respiratory Effort Cardiovascular: Regular Rate, Regular Rhythm, Murmurs GI/Abdominal Exam: Normal Bowel Sounds, Soft, Non-Tender Extremities: Normal Inspection, No Pedal Edema Skin: Warm, Dry Neurological: No New Focal Deficit - Patient Data Lab Results Last 24 hrs: Laboratory Results - last 24 hr 12/14/20 12/14/2012/14/21 Range/Units 18:18 18:39 18:39 WBC 5.1 (4.0-11.0) 10^3/uL RBC 4.10 (4.00-5.50) x10^6/uL Hgb 11.4 L (12.0-16.0) g/dL Hct 38.3 (37.0-47.0) % MCV 93.4 (83.0-97.0) fL MCH 27.8 (27.0-32.0) pg MCHC 29.8 L (32.0-36.0) g/dL RDW Coeff of [place]ck 13.3 (11.0-15.0) % Plt Count 141 L (150-400) 10^3/uL Immature Gran % (Auto) 0.8 (0.0-4.9) % Neut % (Auto) 78.8 H (41-71) % Lymph % (Auto) 12.5 L (24-44) % [place] % (Auto) 6.7 (0-10) % Eos % (Auto) 0.6 (0-6) % Baso % (Auto) 0.6 (0-1) % Neut # (Auto) 4.03 (1.80-8.00) x10^3/uL Lymph # (Auto) 0.64 (0.60-5.00) 10^3/uL [place] # (Auto) 0.34 (0.00-1.50) 10^3/uL Eos # (Auto) 0.03 (0.00-1.50) 10^3/uL Baso # (Auto) 0.03 (0.00-0.50) 10^3/uL Immature Gran # (Auto) 0.04 (0.00-0.49) 10^3/uL D-Dimer, Quantitative (0.00-0.50) Sodium 146 H (136-145) mEq/L Potassium 3.3 L D (3.5-5.0) mEq/L Chloride 105 (98-106) mEq/L Carbon Dioxide 35 H (21-32) mmol/L BUN 19 H (7-18) mg/dL Creatinine 1.3 H (0.6-1.0) mg/dL Est Cr Clr Drug Dosing 35.76 mL/min Estimated GFR (MDRD) 41 L (>=60) mL/min Glucose 124 H (75-99) mg/dL Calcium 9.1 (8.4-10.1) mg/dL Total Bilirubin 0.3 (0.0-1.0) mg/dL AST 25 (15-37) U/L ALT 21 (12-78) U/L Alkaline Phosphatase 102 (46-116) U/L Troponin I < 0.017 (0.00-0.06) ng/mL C-Reactive Protein < 0.2 L (0.2-0.8) mg/dL NT-Pro-B Natriuret Pep 83 (0-1000) pg/mL Total Protein 7.8 (6.4-8.2) g/dL Albumin 3.6 (3.4-5.0) g/dL Urine Color Yellow (YELLOW) Urine Appearance Clear (CLEAR) Urine pH 5.5 (4.5-8.0) Ur Specific [place] 1.025 H (1.003-1.020) Urine Protein 30 H (NEGATIVE) mg/dL Urine Glucose (UA) Negative (NEGATIVE) mg/dL Urine Ketones Negative (NEGATIVE) mg/dL Urine Occult Blood Negative (NEGATIVE) Urine Nitrite Negative (NEGATIVE) Urine Bilirubin Negative (NEGATIVE) Urine Urobilinogen 0.2 (0.2-1.0) EU/dL Ur Leukocyte Esterase Negative (NEGATIVE) Urine RBC Not seen (0-5) /HPF Urine WBC Not seen (0-5) /HPF 12/14/20 12/15/20 12/15/20 Range/Units 18:39 07:00 07:00 WBC 4.9 (4.0-11.0) 10^3/uL RBC 3.71 L (4.00-5.50) x10^6/uL Hgb 10.3 L (12.0-16.0) g/dL Hct 35.3 L (37.0-47.0) % MCV 95.1 (83.0-97.0) fL MCH 27.8 (27.0-32.0) pg MCHC 29.2 L (32.0-36.0) g/dL RDW Coeff of [place] 13.4 (11.0-15.0) % Plt Count 121 L (150-400) 10^3/uL Immature Gran % (Auto) 1.4 (0.0-4.9) % Neut % (Auto) 76.6 H (41-71) % Lymph % (Auto) 14.6 L (24-44) % [place] % (Auto) 6.2 (0-10) % Eos % (Auto) 0.6 (0-6) % Baso % (Auto) 0.6 (0-1) % Neut # (Auto) 3.71 (1.80-8.00) x10^3/uL Lymph # (Auto) 0.71 (0.60-5.00) 10^3/uL [place] # (Auto) 0.30 (0.00-1.50) 10^3/uL Eos # (Auto) 0.03 (0.00-1.50) 10^3/uL Baso # (Auto) 0.03 (0.00-0.50) 10^3/uL Immature Gran # (Auto) 0.07 (0.00-0.49) 10^3/uL D-Dimer, Quantitative 6.02 H (0.00-0.50) Sodium 144 (136-145) mEq/L Potassium 3.7 (3.5-5.0) mEq/L Chloride 105 (98-106) mEq/L Carbon Dioxide 37 H (21-32) mmol/L BUN 15 (7-18) mg/dL Creatinine 1.0 (0.6-1.0) mg/dL Est Cr Clr Drug Dosing 46.50 mL/min Estimated GFR (MDRD) 55 L (>=60) mL/min Glucose 129 H (75-99) mg/dL Calcium 8.6 (8.4-10.1) mg/dL Total Bilirubin (0.0-1.0) mg/dL AST (15-37) U/L ALT (12-78) U/L Alkaline Phosphatase (46-116) U/L Troponin I (0.00-0.06) ng/mL C-Reactive Protein (0.2-0.8) mg/dL NT-Pro-B Natriuret Pep (0-1000) pg/mL Total Protein (6.4-8.2) g/dL Albumin (3.4-5.0) g/dL Urine Color (YELLOW) Urine Appearance (CLEAR) Urine pH (4.5-8.0) Ur Specific [place] (1.003-1.020) Urine Protein (NEGATIVE) mg/dL Urine Glucose (UA) (NEGATIVE) mg/dL Urine Ketones (NEGATIVE) mg/dL Urine Occult Blood (NEGATIVE) Urine Nitrite (NEGATIVE) Urine Bilirubin (NEGATIVE) Urine Urobilinogen (0.2-1.0) EU/dL Ur Leukocyte Esterase (NEGATIVE) Urine RBC (0-5) /HPF Urine WBC (0-5) /HPF Result Diagrams: 12/15/20 07:00 12/15/20 07:00 Sepsis Event Note - Evaluation Sepsis Screening Result: No Definite Risk - Focused Exam Vital Signs: Vital Signs Temp Pulse Resp BP BP Pulse Ox 12/15/20 07:36 90 141/68 H 12/15/20 05:20 93 L 12/15/20 03:54 97.8 F 20 138/63 92 L 12/15/20 00:00 97 F 20 133/67 92 L 12/14/20 20:55 97.2 F 20 165/73 H 92 L - Problem List & Annotations (1) Hallucinations, visual SNOMED Code(s): 22862790 Code(s): R44.1 - VISUAL HALLUCINATIONS Status: Acute Priority: High Current Visit: Yes (2) Generalized weakness SNOMED Code(s): 97214454 Code(s): R53.1 - WEAKNESS Status: Acute Priority: High Current Visit: Yes (3) Hypoxia SNOMED Code(s): 476182271 Code(s): R09.02 - HYPOXEMIA Status: Acute Priority: High Current Visit: Yes (4) Failure to thrive in adult SNOMED Code(s): 208952960 Code(s): R62.7 - ADULT FAILURE TO THRIVE Status: Acute Priority: High Current Visit: Yes - Problem List Review Problem List Initiated/Reviewed/Updated: Yes - My Orders Last 24 Hours: My Active Orders 12/14/20 Breakfast Regular Diet [DIET] 12/14/20 18:18 Chest 2V [CR] Stat 12/14/20 19:30 Ang Chest [CT] Stat 12/14/20 20:58 Resuscitation Status Routine 12/14/20 21:01 Ibuprofen [Motrin] 800 mg PO BID PRN 12/14/20 21:12 Ondansetron [Zofran ODT] 4 mg PO Q4H PRN Ondansetron [Zofran] 4 mg IV Q4H PRN Sodium Chloride 0.9% [Saline Flush] 10 ml FLUSH ASDIRECTED PRN 12/14/20 21:12 Patient Status [ADT] Routine Cardiac Monitoring [RC] 0800,1999 Oxygen Therapy [RC] 2355 Up With Assistance [RC] .PRN Vital Signs [RC] 0000,0400,0800,1200,1600,2000 Consult to Case Management/[place] [CONS] Routine PT Evaluation and Treatment [CONS] Routine Saline Lock Insert [OM.PC] Routine 12/14/20 21:15 Fesoterodine Fumarate [Toviaz] 4 mg PO ASDIRECTED 12/15/20 07:00 Levothyroxine [Synthroid] 75 mcg PO ACBREAKFAST 12/15/20 08:00 DULoxetine [Cymbalta] 60 mg PO DAILY Dextroamphetamine/Amphetamine [Amphetamine Salts] 30 mg PO 0800,1500 Metoprolol Tartrate [Lopressor] 25 mg PO BID@0800,1500 Multivitamins [Tab-A-Leonila] 1 tab PO DAILY amLODIPine [Norvasc] 10 mg PO DAILY lisinopriL [Prinivil] 20 mg PO BID@0800,1500 12/15/20 12:00 Enoxaparin [Lovenox] 40 mg SUBCUT Q24H - Assessment Assessment:: Weakness Visual Hallucinations Hypoxia Failure to Thrive - Plan Plan:: Labs are improved today. Sodium and potassium are normal now. Hemoglobin down to 10.3. Did have large incontinent stool, brown in nature. Encouraged to be up in chair/ambulate. Repeat labs in am. Social service and PT consult in am.
[2020-12-15] MEDS ORDERED: [UNRECOGNIZED DRUG - OTHER] PO SCH (08:00)
[2020-12-15] MEDS ORDERED: AMPHETAMINE PO SCH (08:00)
[2020-12-15] MEDS ORDERED: DEXTROAMPHETAMINE PO SCH (08:00)
[2020-12-15] MEDS: Enoxaparin 40 MG/0.4 ML Syringe SUBCUT SCH (11:55)
[2020-12-16] MEDS ORDERED: LORazepam 2 MG/ML Syringe IVPUSH ONE (00:08)
[2020-12-16] MEDS: Multivitamin Tab PO SCH (08:15)
[2020-12-16] MEDS: Metoprolol Tartrate 25 MG Tab PO SCH ×2 (08:15→15:22)
[2020-12-16] MEDS: DULoxetine 30 MG Cap PO SCH (08:15)
[2020-12-16] MEDS: Lisinopril 20 MG Tab PO SCH ×2 (08:15→15:22)
[2020-12-16] MEDS: amLODIPine 10 MG Tab PO SCH (08:16)
[2020-12-16] MEDS: Levothyroxine 50 MCG Tab PO SCH (08:17)
[2020-12-16] MEDS: Enoxaparin 40 MG/0.4 ML Syringe SUBCUT SCH (11:22)
[2020-12-17] MEDS: Levothyroxine 50 MCG Tab PO SCH (06:31)
[2020-12-17] MEDS ORDERED: Pantoprazole 40 MG Tab.CR PO SCH (07:00)
[2020-12-17] MEDS: Lisinopril 20 MG Tab PO SCH (07:28)
[2020-12-17] MEDS: Multivitamin Tab PO SCH (07:29)
[2020-12-17] MEDS: DULoxetine 30 MG Cap PO SCH (07:29)
[2020-12-17] MEDS: Metoprolol Tartrate 25 MG Tab PO SCH (07:29)
[2020-12-17] MEDS: amLODIPine 10 MG Tab PO SCH (08:37)
--- NOTE | 2020-12-18 16:12 | PN ---
DATE: 12/16/2020 S: Mrs. Kothari was admitted for failure to thrive at home, inability to be cared for by her . She is a patient with known schizophrenia who was previously in a halfway. She went home and was noncompliant with her medications. Her brought her in as he could not take care of her. She was hypoxic, was having hallucinations, and ultimately was brought back to our facility and readmitted by Yumiko Nieto. She has been stable since being here. I believe she is still on 4 L of oxygen per nasal cannula and is satting in the 90s. She is no longer having hallucinations and she is set for discharge tomorrow to the [facility] to be readmitted for her chronic health issues. O: GENERAL: She is lying in bed. She appears in no distress. HEENT: Grossly benign. NECK: Her neck is supple. Veins are flat. LUNGS: Lung sounds appear to be clear albeit slightly diminished. CARDIAC: Tones are regular. ASSESSMENT: 1. SCHIZOPHRENIA WITH HALLUCINATIONS. 2. WEAKNESS, IMPROVED. 3. HYPOXIA, STABLE ON OXYGEN. 4. FAILURE TO THRIVE. P: The patient will be set to be discharged hopefully by tomorrow. We will make no other changes at this time. ZANE/OPAL /[id number]
--- NOTE | 2020-12-18 16:12 | DISCH ---
ADMISSION DIAGNOSES: 1. Schizophrenia. 2. Failure to thrive. 3. Hypoxia. 4. Hypertension. DISCHARGE DIAGNOSIS: 1. SCHIZOPHRENIA. 2. FAILURE TO THRIVE. 3. HYPOXIA. 4. HYPERTENSION. HISTORY: Omayra is a 70-year-old female who was recently admitted to [facility] for failure to thrive and schizophrenia. just could not take care of her at home. She got better while she was in the jail in [place] and ultimately went home. Over the last weeks, she has basically declined drastically and cannot take care of her. She presented to our facility where Yumiko Nieto evaluated her. She had no signs of any infectious disease, electrolyte abnormality, or other acute illness other than a slightly low potassium. She was admitted and appropriate cares offered. HOSPITAL COURSE: The patient did well while here. She was initially given some potassium and her levels are now normal. She did have an elevated D-dimer on admit and she was hypoxic and the CT showed no signs of a PE. She has been kept on 2 L of oxygen and her sats are holding steady. Consultation with Social Work allowed for admission to [facility] for long-term care which will be permanent. No other real changes have been made. We will get Dr. Jacob to be involved in her care and proceed accordingly. COMPLICATIONS: During her stay were none. CONSULTATIONS: Social Work. DISPOSITION: Transferred to [facility]. ZANE/OPAL /[id number]
== END 2020-12-17 10:09 | DRG 885 ==
LOC: CC.ED 18:06 → OBSVTOIN 19:58 → CC.MS 19:58 → INTOOBSV 19:58 → UNDOADMOB 19:58 → OBSVTOIN 20:57 → CC.MS 20:57
PROVIDERS: ADMIT Physician Assistant Medical; ATTEND Family Medicine
DX: F20.9 Schizophrenia, unspecified (principal); R09.02 Hypoxemia; R53.1 Weakness; R62.7 Adult failure to thrive; R44.0 Auditory hallucinations; R44.1 Visual hallucinations; I10 Essential (primary) hypertension; J44.9 Chronic obstructive pulmonary disease, unspecified; F32.9 Major depressive disorder, single episode, unspecified; F90.9 Attention-deficit hyperactivity disorder, unspecified type; E03.9 Hypothyroidism, unspecified; Z79.890 Hormone replacement therapy; Z79.899 Other long term (current) drug therapy; Z90.49 Acquired absence of other specified parts of digestive tract
CPT/HCPCS: 36415; 71046; 71275; 80048; 80053; 81001; 83880; 84484; 85025; 85379; 86140; 99285-25; A9270-GY; J1650; J2060; Q9967

== ENCOUNTER 2021-02-02 18:11 | Emergency (ER) | payer MEDICARE, MEDICAID ==
[~2021-02-02 18:11] MED LIST: Nitroglycerin 0.4 MG Tab.SL SL PRN
[2021-02-02] MEDS: Aspirin 81 MG Tab.Chew PO ONE (18:41)
--- NOTE | 2021-02-02 18:48 | EDM.PDOC ---
ED HPI GENERAL MEDICAL PROBLEM - General Chief Complaint: Chest Pain Stated Complaint: chest pain, ? syncopal episode Time Seen by Provider: 02/02/21 18:11 Source of Information: Reports: Patient, EMS, Penitentiary Records History Limitations: Reports: No Limitations - History of Present Illness INITIAL COMMENTS - FREE TEXT/NARRATIVE: [facility] reports that she was sitting at the supper table and told one of the residents that she didn't feel well and then became unresponsive for a short time. She then woke up and was alert and oriented. She then states that she had some chest pain. Her sats were 88% on 3 liters. She is on 3 liters continuous usp. She typically runs in the low 90's but [facility] report. They did increase her oxygen to 4 L and it went up to 94%. She remained responsive after this. She states that her chest hurts if it is pressed on but no pain if she is resting quietly. oxygen turned down here to 3L again and sats remained in the 93% range. She has not had any edema. She is alert and oriented when when arrived here. Onset: Today Duration: Improving Location: Reports: Chest Associated Symptoms: Reports: Chest Pain, Shortness of Breath Chest Pain Score (Numeric/FACES): 5 - Related Data Allergies Allergy/AdvReac Type Severity Reaction Status Date / Time No Known Allergies Allergy Verified 12/14/20 18:11 Home Meds: Home Meds DULoxetine [Cymbalta] 60 mg PO DAILY 12/07/13 [History] Ibuprofen 800 mg PO BID PRN 12/07/13 [History] Levothyroxine [Synthroid] 75 mcg PO DAILY 12/07/13 [History] Lisinopril [Zestril] 20 mg PO 0800,1500 12/07/13 [History] Multivitamin [Multi-Vitamin Daily] 1 each PO DAILY 12/07/13 [History] amLODIPine [Norvasc] 10 mg PO DAILY #30 tablet 12/10/13 [Rx] Metoprolol Tartrate [Lopressor] 25 mg PO 0800,1500 08/11/20 [History] ARIPiprazole [Abilify] 10 mg PO DAILY 02/02/21 [History] Acetaminophen [Tylenol] 650 mg PO Q6H PRN 02/02/21 [History] Fesoterodine Fumarate [Toviaz] 4 mg PO DAILY 02/02/21 [History] Mag Hydrox/Aluminum Hyd/Simeth [Antacid Anti-Gas Liquid] 30 ml PO QID PRN 02/02/21 [History] Pantoprazole Sodium [Protonix] 40 mg PO DAILY 02/02/21 [History] Past Medical History Cardiovascular History: Reports: Hypertension Respiratory History: Reports: COPD, SOB Psychiatric History: Reports: ADHD, Depression, Hallucinations, Schizophrenia Endocrine/Metabolic History: Reports: Hypothyroidism - Past Surgical History GI Surgical History: Reports: Cholecystectomy Social & Family History - Family History Family Medical History: Unobtainable - Tobacco Use Tobacco Use Status *Q: Former Tobacco User Used Tobacco, but Quit: Yes Month/Year Tobacco Last Used: 1 year - Caffeine Use Caffeine Use: Reports: Soda - Recreational Drug Use Recreational Drug Use: No - Living Situation & Occupation Living situation: Reports: Extended Care Facility Occupation: Retired ED ROS GENERAL - Review of Systems Review Of Systems: See Below Constitutional: Reports: No Symptoms HEENT: Reports: No Symptoms Respiratory: Reports: Shortness of Breath Cardiovascular: Reports: Chest Pain GI/Abdominal: Reports: No Symptoms : Reports: No Symptoms Musculoskeletal: Reports: No Symptoms ED EXAM, GENERAL - Physical Exam Exam: See Below Exam Limited By: No Limitations General Appearance: Alert, WD/WN, No Apparent Distress Ears: Normal TMs Throat/Mouth: Normal Inspection, Normal Oropharynx Head: Atraumatic, Normocephalic Respiratory/Chest: No Respiratory Distress, Other (decreased to the bases more on the left. Has some chest wall tenderness with palpation. No pain while resting.) Cardiovascular: Regular Rate, Rhythm, No Edema GI/Abdominal: Normal Bowel Sounds, Soft, Non-Tender Extremities: No Pedal Edema, Normal Capillary Refill Neurological: Alert, Oriented Skin Exam: Warm, Dry, Intact Course - Vital Signs Last Recorded V/S: Last Vital Signs Temp 96.9 F 02/02/21 18:15 Pulse 72 02/02/21 18:15 Resp 16 02/02/21 18:35 BP 140/83 02/02/21 18:35 Pulse Ox 93 L 02/02/21 18:35 - Orders/Labs/Meds Orders: Active Orders 24 hr Category Date Time Status Cardiac Monitoring [RC] . DIRECTED Care 02/02/21 18:02 Active Chest 1V Frontal [CR] Stat Exams 02/02/21 18:02 Taken COMPREHENSIVE METABOLIC PN,CMP [CHEM] Stat Lab 02/02/21 18:02 Ordered CORONAVIRUS COVID-19 RAPID [MOLEC] Stat Lab 02/02/21 18:09 Ordered CREATINE KINASE,CK [CHEM] Stat Lab 02/02/21 18:02 Ordered LACTATE DEHYDROGENASE,LDH [CHEM] Stat Lab 02/02/21 18:02 Ordered LIPASE [CHEM] Stat Lab 02/02/21 18:02 Ordered MAGNESIUM [CHEM] Stat Lab 02/02/21 18:02 Ordered PRO B-TYPE NATRIUR PEPT,BNPPRO [CHEM] Stat Lab 02/02/21 18:02 Ordered TROPONIN I HIGH SENSITIVITY [CHEM] Stat Lab 02/02/21 18:02 Ordered Nitroglycerin [Nitrostat] Med 02/02/21 18:02 Active 0.4 mg SL Q5M PRN Medication Orders Nitroglycerin (Nitroglycerin 0.4 Mg Tab.Sl) 0.4 mg SL Q5M PRN PRN Reason: Chest Pain Labs: Laboratory Tests 02/02/21 02/02/21 Range/Units 18:02 18:02 WBC 5.6 (4.0-11.0) 10^3/uL RBC 3.94 L (4.00-5.50) x10^6/uL Hgb 11.3 L (12.0-16.0) g/dL Hct 37.2 (37.0-47.0) % MCV 94.4 (83.0-97.0) fL MCH 28.7 (27.0-32.0) pg MCHC 30.4 L (32.0-36.0) g/dL RDW Coeff of Marck 14.6 (11.0-15.0) % Plt Count 151 (150-400) 10^3/uL Immature Gran % (Auto) 0.4 (0.0-4.9) % Neut % (Auto) 74.1 H (41-71) % Lymph % (Auto) 14.7 L (24-44) % [place] % (Auto) 7.6 (0-10) % Eos % (Auto) 2.3 (0-6) % Baso % (Auto) 0.9 (0-1) % Neut # (Auto) 4.18 (1.80-8.00) x10^3/uL Lymph # (Auto) 0.83 (0.60-5.00) 10^3/uL [place] # (Auto) 0.43 (0.00-1.50) 10^3/uL Eos # (Auto) 0.13 (0.00-1.50) 10^3/uL Baso # (Auto) 0.05 (0.00-0.50) 10^3/uL Immature Gran # (Auto) 0.02 (0.00-0.49) 10^3/uL PT 9.9 (9.7-12.3) SEC INR 0.90 L (0.92-1.18) Meds: Medications Generic Name Dose Route Start Last Admin Trade Name Freq PRN Reason Stop Dose Admin Nitroglycerin 0.4 mg 02/02/21 18:02 Nitroglycerin 0.4 Mg Tab.Sl SL Q5M PRN Chest Pain Discontinued Medications Generic Name Dose Route Start Last Admin Trade Name Freq PRN Reason Stop Dose Admin Aspirin 324 mg 02/02/21 18:02 02/02/21 18:41 Aspirin 81 Mg Tab.Chew PO 02/02/21 18:03 324 mg ONETIME ONE Administration - Re-Assessments/Exams Free Text/Narrative Re-Assessment/Exam: 02/02/21 19:03 Discussed lab results, XRAy, and EKG with pt. All are normal. She would like appt with Cathleen Harmon as she feels that her mental health is not as good as she would like it to be. Will arrange for this through the [facility]. Departure - Departure Time of Disposition: 19:05 Disposition: Home, Self-Care 01 Condition: Good Clinical Impression: Syncope Qualifiers: Syncope type: vasovagal syncope Qualified Code(s): R55 - Syncope and collapse Referrals: Kodi Brito MD [Primary Care Provider] - Additional Instructions: return to [facility]. arrange appt with Cathleen Harmon for med adjustment and counseling per pt reques t. recheck with new concerns if needed. Sepsis Event Note (ED) - Evaluation Sepsis Screening Result: No Definite Risk - Focused Exam Vital Signs: Vital Signs Temp Pulse Resp BP Pulse Ox 02/02/21 18:35 16 140/83 93 L 02/02/21 18:15 96.9 F 72 18 146/81 H 93 L - Problem List & Annotations (1) Syncope SNOMED Code(s): 829317247 Code(s): R55 - SYNCOPE AND COLLAPSE Status: Acute Priority: High Current Visit: Yes Qualifiers: Syncope type: vasovagal syncope Qualified Code(s): R55 - Syncope and collapse - Problem List Review Problem List Initiated/Reviewed/Updated: Yes - My Orders Last 24 Hours: My Active Orders 02/02/21 18:02 Cardiac Monitoring [RC] . DIRECTED Chest 1V Frontal [CR] Stat COMPREHENSIVE METABOLIC PN,CMP [CHEM] Stat CREATINE KINASE,CK [CHEM] Stat LACTATE DEHYDROGENASE,LDH [CHEM] Stat LIPASE [CHEM] Stat MAGNESIUM [CHEM] Stat PRO B-TYPE NATRIUR PEPT,BNPPRO [CHEM] Stat TROPONIN I HIGH SENSITIVITY [CHEM] Stat Nitroglycerin [Nitrostat] 0.4 mg SL Q5M PRN 02/02/21 18:09 CORONAVIRUS COVID-19 RAPID [MOLEC] Stat - Assessment/Plan Last 24 Hours: My Active Orders 02/02/21 18:02 Cardiac Monitoring [RC] . DIRECTED Chest 1V Frontal [CR] Stat COMPREHENSIVE METABOLIC PN,CMP [CHEM] Stat CREATINE KINASE,CK [CHEM] Stat LACTATE DEHYDROGENASE,LDH [CHEM] Stat LIPASE [CHEM] Stat MAGNESIUM [CHEM] Stat PRO B-TYPE NATRIUR PEPT,BNPPRO [CHEM] Stat TROPONIN I HIGH SENSITIVITY [CHEM] Stat Nitroglycerin [Nitrostat] 0.4 mg SL Q5M PRN 02/02/21 18:09 CORONAVIRUS COVID-19 RAPID [MOLEC] Stat
== END 2021-02-02 19:40 | disposition home or self-care (01) ==
LOC: CC.ED 18:11
DX: R55 Syncope and collapse (principal); I10 Essential (primary) hypertension; J44.9 Chronic obstructive pulmonary disease, unspecified; E03.9 Hypothyroidism, unspecified; Z87.891 Personal history of nicotine dependence; Z79.899 Other long term (current) drug therapy; Z20.822 Contact with and (suspected) exposure to COVID-19; R06.02 Shortness of breath
CPT/HCPCS: 36415; 71045; 80053; 82550; 83615; 83690; 83735; 83880; 84484; 85025; 85610; 93005; 93010; 99283; 99285-25; A9270-GY; U0002